=== PATIENT | female | born 1990 | race Caucasian/White ===

== ENCOUNTER 2016-05-07 15:09 | Emergency (ER) | payer OTHER ==
[~2016-05-07] VITALS: Ht 170.2 cm; Wt 131.5 kg
[~2016-05-07 15:09] MED LIST: MOTRIN PO; PRENATAL VITAMIN PO; TYLENOL PO
[2016-05-07] MEDS ORDERED: birth control PO (15:18)
[2016-05-07] MEDS ORDERED: LEXA1TAB PO (15:18)
[2016-05-07] MEDS ORDERED: GI COCKTAIL 50ML BTL(HYOSCYAMINE/MAALOX/LIDOCAINE VISCOUS)(1:3:1) PO ONE (17:00)
[2016-05-07] MEDS ORDERED: PRIL20TA2 PO (17:10)
[2016-05-07 17:28] VITALS: BP 141/91
== END 2016-05-07 17:39 | disposition home or self-care (01) ==
LOC: M ED 17:16
DX: K21.0 Gastro-esophageal reflux disease with esophagitis (principal); Z79.899 Other long term (current) drug therapy

== ENCOUNTER → 2017-06-10 | Outpatient (REF) | payer OTHER ==
[2017-06-10 13:16] LABS: HEMATOCRIT 37.1 % (36.0-47.0); HEMOGLOBIN 12.2 g/dl (12.0-15.5); MEAN CORPUSCULAR HEMOGLOBIN 26.8 pg (27.0-33.0); MEAN CORPUSCULAR HGB CONC 32.9 g/dl (32.0-36.5); MEAN CORPUSCULAR VOLUME 81.5 fl (80.0-96.0); PLATELET COUNT, AUTOMATED 130 10^3/uL (150-450); RED BLOOD COUNT 4.55 10^6/uL (4.00-5.40); RED CELL DISTRIBUTION WIDTH 13.7 % (11.5-14.5); WHITE BLOOD COUNT 8.2 10^3/uL (4.0-10.0)
[2017-06-10 14:06] LABS: HCG, SERUM QUANTITATIVE 5685 MIU/ML
[2017-06-11 10:55] LABS: RUBELLA IgG QUALITATIVE IMMUNE (IMMUNE)
[2017-06-11 11:11] LABS: HBsAg Prenatal NEGATIVE (NEGATIVE)
[2017-06-11 11:25] LABS: HIV 1&2 SCREEN CENTAUR NEGATIVE (NEGATIVE)
[2017-06-11 11:25] LABS: HEPATITIS C VIRUS ABY INDEX 0.1 INDEX (<0.8)
== END ==
LOC: M LAB REF 12:49
DX: O36.80X0 Pregnancy with inconclusive fetal viability, not applicable or unspecified (principal)

== ENCOUNTER → 2017-07-13 | Outpatient (REF) | payer OTHER ==
[2017-07-13 15:58] LABS: CHLAMYDIA DNA AMPLIFICATION NEGATIVE (NEGATIVE)
[2017-07-14 11:34] LABS: GC DNA AMPLIFICATION NEGATIVE (NEGATIVE)
== END ==
LOC: M LAB REF 13:33
DX: Z34.81 Encounter for supervision of other normal pregnancy, first trimester (principal)

== ENCOUNTER → 2017-11-19 | Outpatient (CLI) | payer OTHER ==
[2017-11-19 11:32] LABS: HEMATOCRIT 32.9 % (36.0-47.0); MEAN CORPUSCULAR HEMOGLOBIN 27.6 pg (27.0-33.0); MEAN CORPUSCULAR HGB CONC 33.4 g/dl (32.0-36.5); MEAN CORPUSCULAR VOLUME 82.5 fl (80.0-96.0); PLATELET COUNT, AUTOMATED 317 10^3/uL (150-450); RED BLOOD COUNT 3.99 10^6/uL (4.00-5.40); RED CELL DISTRIBUTION WIDTH 13.3 % (11.5-14.5); WHITE BLOOD COUNT 10.9 10^3/uL (4.0-10.0)
[2017-11-19 12:19] LABS: GLUCOSE CHALLENGE TEST 1 HOUR 140 MG/DL (LESS THAN 140)
== END ==
LOC: M LAB 10:08
DX: Z34.82 Encounter for supervision of other normal pregnancy, second trimester (principal); Z3A.00 Weeks of gestation of pregnancy not specified
CPT/HCPCS: 82950

== ENCOUNTER → 2017-11-26 | Outpatient (CLI) | payer OTHER ==
[2017-11-26 09:09] LABS: GLUCOSE, FASTING 78 MG/DL (LESS THAN 95)
[2017-11-26 10:23] LABS: 1 HR GLUCOSE 133 MG/DL (LESS THAN 180)
[2017-11-26 11:26] LABS: 2 HR GLUCOSE 115 MG/DL (LESS THAN 155)
[2017-11-26 11:53] LABS: 3 HR GLUCOSE 86 MG/DL (LESS THAN 140)
== END ==
LOC: M LAB 07:49
DX: O99.810 Abnormal glucose complicating pregnancy (principal); Z36.89 Encounter for other specified antenatal screening
CPT/HCPCS: 82951

== ENCOUNTER → 2018-01-06 | Outpatient (REF) | payer OTHER | LOC: M LAB REF 16:40 | DX: O13.3 Gestational [pregnancy-induced] hypertension without significant proteinuria, third trimester (principal) ==

== ENCOUNTER 2018-02-03 08:23 | Inpatient (IN) | payer OTHER ==
[2018-02-03] MEDS: LR 300 ML IV (09:47)
[2018-02-03 10:17] LABS: HEMATOCRIT 32.5 % (36.0-47.0); HEMOGLOBIN 10.1 g/dl (12.0-15.5); MEAN CORPUSCULAR HGB CONC 31.1 g/dl (32.0-36.5); MEAN CORPUSCULAR VOLUME 77.4 fl (80.0-96.0); PLATELET COUNT, AUTOMATED 335 10^3/uL (150-450); RED CELL DISTRIBUTION WIDTH 14.5 % (11.5-14.5); WHITE BLOOD COUNT 10.3 10^3/uL (4.0-10.0)
[2018-02-03] MEDS: LR 1,000 ML IV ×2 (10:21→15:35)
[2018-02-03] MEDS: LABETALOL 200 MG TAB PO ×2 (10:22→20:56)
[2018-02-03 10:32] LABS: ALT/SGPT 11 U/L (12-78); AST/SGOT 9 U/L (7-37); BILIRUBIN,TOTAL 0.3 MG/DL (0.2-1.0); CREATININE FOR GFR 0.62 MG/DL (0.55-1.30); GLOMERULAR FILTRATION RATE > 60.0 (>60); LDH LACTATE DEHYDROGENASE 176 U/L (84-246); URIC ACID 4.8 MG/DL (2.6-6.0)
[2018-02-03] MEDS: miSOPROStol 50 MCG 1/2 TAB (S0191) PO ×3 (15:35→23:30)
[2018-02-04 06:14] LABS: HEMATOCRIT 32.8 % (36.0-47.0); HEMOGLOBIN 10.2 g/dl (12.0-15.5); MEAN CORPUSCULAR HEMOGLOBIN 24.3 pg (27.0-33.0); MEAN CORPUSCULAR HGB CONC 31.1 g/dl (32.0-36.5); MEAN CORPUSCULAR VOLUME 78.1 fl (80.0-96.0); PLATELET COUNT, AUTOMATED 338 10^3/uL (150-450); RED CELL DISTRIBUTION WIDTH 14.6 % (11.5-14.5); WHITE BLOOD COUNT 11.9 10^3/uL (4.0-10.0)
[2018-02-04 06:35] LABS: ALT/SGPT 10 U/L (12-78); AST/SGOT 12 U/L (7-37); BILIRUBIN,TOTAL 0.3 MG/DL (0.2-1.0); CREATININE FOR GFR 0.64 MG/DL (0.55-1.30); GLOMERULAR FILTRATION RATE > 60.0 (>60); LDH LACTATE DEHYDROGENASE 246 U/L (84-246); URIC ACID 4.4 MG/DL (2.6-6.0)
[2018-02-04] MEDS: OXYTOCIN DRIP 30 UNITS in APPROPRIATE DILUENT 1 EA IV ×2 (08:04→16:30)
[2018-02-04] MEDS: LR 1,000 ML IV (08:07)
[2018-02-04] MEDS: LABETALOL 200 MG TAB PO ×2 (09:04→20:49)
[2018-02-04] MEDS ORDERED: FENTANYL 2MCG/ML ROPIVACAINE 0.2% IN 0.9% NACL 200ML IVBAG As Ordered (11:12)
[2018-02-04] MEDS ORDERED: ONDANSETRON 4MG/2ML VIAL (J2405) IV (12:45)
[2018-02-04] MEDS ORDERED: EPIDURAL COMMENT XX (12:45)
[2018-02-04] MEDS ORDERED: ePHEDrine SULFATE 25 MG/5 ML(5MG/ML) SYRINGE IV (12:45)
[2018-02-04] MEDS ORDERED: LACTATED RINGER'S 1000 ML IV (12:45)
[2018-02-04] MEDS: FENTANYL/ROPIVACAINE/NACL BAG 200 ML EPIDURAL (12:45)
[2018-02-04] MEDS ORDERED: NALOXONE INJ 0.4 MG/1 ML VIAL (J2310) IV (12:45)
[2018-02-04] MEDS ORDERED: REFRIGERATOR IV KEYS XX (12:45)
[2018-02-04] MEDS ORDERED: EPIDURAL/PCA KEYS XX (12:45)
[2018-02-04] MEDS ORDERED: diphenhydrAMINE INJ 50MG/ML VIAL (J1200) IV (12:45)
[2018-02-04] MEDS ORDERED: DIBUCAINE 1% OINTMENT 30GM TOP (16:30)
[2018-02-04] MEDS ORDERED: METHYLERGONOVINE MALEATE 0.2 MG TAB PO (16:30)
[2018-02-04] MEDS ORDERED: ANUSOL HC CREAM 30GM TOP (16:30)
[2018-02-04] MEDS ORDERED: DOCUSATE SODIUM 100 MG CAP PO (16:30)
[2018-02-04] MEDS ORDERED: MEASLES,MUMPS,RUBELLA VACCINE INJ (MMR-II) (90707) SC (16:30)
[2018-02-04] MEDS ORDERED: RHOGAM 300 MCG (1500 IU) INJ (J2790) IM (16:30)
[2018-02-04] MEDS: SERTRALINE 100 MG TAB PO (20:47)
[2018-02-05] MEDS: IBUPROFEN 800 MG TAB PO ×2 (06:12→16:13)
[2018-02-05] MEDS: PRENATAL VITAMINS CHEWABLE TABLET PO (09:41)
[2018-02-05] MEDS: LABETALOL 200 MG TAB PO ×2 (09:41→20:40)
[2018-02-05] MEDS: SERTRALINE 100 MG TAB PO (20:40)
[2018-02-05] MEDS: ACETAMINOPHEN 500 MG TAB PO (22:22)
[2018-02-06] MEDS: LABETALOL 200 MG TAB PO (09:04)
[2018-02-06] MEDS: PRENATAL VITAMINS CHEWABLE TABLET PO (09:04)
[2018-02-06] MEDS: IBUPROFEN 800 MG TAB PO (09:05)
== END 2018-02-06 10:45 | disposition home or self-care (01) | DRG 560 ==
LOC: M LDI 08:23 → M OBS 02-04 18:52
PROC: 3E033VJ Introduction of Other Hormone into Peripheral Vein, Percutaneous Approach (ICD-10-PCS; 2018-02-03)
PROC: 10E0XZZ Delivery of Products of Conception, External Approach (ICD-10-PCS; principal; 2018-02-04)
DX: O10.92 Unspecified pre-existing hypertension complicating childbirth (principal); Z37.0 Single live birth; Z3A.39 39 weeks gestation of pregnancy; D69.6 Thrombocytopenia, unspecified; O99.12 Other diseases of the blood and blood-forming organs and certain disorders involving the immune mechanism complicating childbirth; E66.9 Obesity, unspecified; O99.214 Obesity complicating childbirth

== ENCOUNTER 2018-07-01 18:13 | Emergency (ER) | payer OTHER ==
[~2018-07-01] VITALS: Ht 170.2 cm; Wt 136.4 kg
[~2018-07-01 18:13] MED LIST changes: -DEBL1TAB PO; -NAPR-837 PO
[2018-07-01] MEDS ORDERED: DEBL1TAB PO (19:09)
[2018-07-01 20:03] LABS: HCG, SERUM QUALITATIVE NEGATIVE (NEGATIVE)
[2018-07-01 20:07] LABS: BLOOD UREA NITROGEN 11 MG/DL (7-18); CALCIUM LEVEL 8.9 MG/DL (8.5-10.1); CARBON DIOXIDE LEVEL 25 MEQ/L (21-32); CHLORIDE LEVEL 106 MEQ/L (98-107); CREATININE FOR GFR 0.82 MG/DL (0.55-1.30); GLOMERULAR FILTRATION RATE > 60.0 (>60); GLUCOSE, FASTING 89 MG/DL (70-100); SODIUM LEVEL 139 MEQ/L (136-145)
[2018-07-01] MEDS ORDERED: ISOVUE-370 76% 100ML VIAL (Q9967) As Ordered ONE (20:34)
[2018-07-01 20:54] LABS: CK-MB VALUE MASS < 1.0 NG/ML (<3.6); CPK CREATINE PHOSPHOKINASE 103 U/L (26-192); MB/CK RELATIVE INDEX 0.97 (< OR =4); TROPONIN I < 0.02 NG/ML (< 0.10)
--- NOTE | 2018-07-01 21:52 | REPVR ---
EXAM: CT Angiography Chest With Contrast EXAM DATE/TIME: 07/01/2018 8:35 PM CLINICAL HISTORY: 27 years old, female; Signs and symptoms; Shortness of breath; Additional info: Chest pain, ddimer TECHNIQUE: Imaging protocol: Axial computed tomographic angiography images of the chest with intravenous contrast using CT angiography protocol. Coronal and sagittal reformatted images were created and reviewed. 3D rendering: MIP reconstructed images were created and reviewed. Radiation optimization: All CT scans at this facility use at least one of these dose optimization techniques: automated exposure control; mA and/or kV adjustment per patient size (includes targeted exams where dose is matched to clinical indication); or iterative reconstruction. Contrast material: ISOVUE 370; Contrast volume: 75 ml; Contrast route: IV; COMPARISON: DX RIBS UNILATERAL WITH PA CHEST 07/01/2018 5:16 PM FINDINGS: Pulmonary arteries: Contrast opacification satisfactory. No intraluminal filling defect. Aorta: Unremarkable. No aneurysm or dissection. Lungs: Mild linear stranding and groundglass, likely due to atelectasis and/or scarring. No focal consolidation. Pleural space: Small left pleural effusion. No pneumothorax. Heart: Unremarkable. No cardiomegaly. No pericardial effusion. Lymph nodes: No pathologically enlarged lymph nodes. Bones/joints: No acute osseous abnormality. Soft tissues: Unremarkable. IMPRESSION: 1. No CT evidence of acute appendicitis. 2. Small left pleural effusion. 3. Additional findings, as above. Electronically signed by: Ryan Gifford On 07/01/2018 21:52:22 PM
[2018-07-01] MEDS ORDERED: NAPR-837 PO (22:06)
[2018-07-01] MEDS ORDERED: KETOROLAC 30 MG/ML VIAL (J1885) IV ONE (22:15)
[2018-07-01 22:16] VITALS: BP 135/80
--- NOTE | 2018-07-02 06:40 | ECGEPIP ---
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
--- NOTE | 2018-07-02 06:50 | ED PDOC ---
Post-Departure Follow-Up dr painter faxed formal report of cta chest for fu Rickie De La Fuente MD Jul 02, 2018 06:50
== END 2018-07-01 22:39 | disposition home or self-care (01) ==
LOC: M ED 18:13
DX: R07.89 Other chest pain (principal); Z79.899 Other long term (current) drug therapy
CPT/HCPCS: 36415; 71275; 80048; 82550; 82553; 84703; 85379; 93005; 96374; 99284; J1885; Q9967

== ENCOUNTER → 2018-07-01 | Outpatient (CLI) | payer OTHER ==
[~2018-07-01] MED LIST changes: +DEBL1TAB PO; +IBUP80TA PO; +LABE20TAB PO; +LEXA1TAB PO; +MAPA500T2 PO; +NAPR-837 PO; +PRIL20TA2 PO; +ZOLO100T PO; +birth control PO
--- NOTE | 2018-07-01 17:48 | REP ---
Unilateral left ribs PA chest five views History: Left chest pain The lungs are clear. The heart is normal in size. The pulmonary vasculature is normal in appearance. The bony structure is intact. Impression: No acute disease. Electronically Signed by Bret Rodriguez MD 07/01/2018 05:39 P
== END ==
LOC: M ADAMS 17:24
PROVIDERS: ATTEND Physician Assistant Medical
DX: R07.89 Other chest pain (principal)

== ENCOUNTER 2020-03-27 19:06 | Day surgery (SDC) | payer OTHER ==
[~2020-03-27] VITALS: Ht 170.2 cm; Wt 145.6 kg
[~2020-03-27 19:06] MED LIST changes: -GASTROGRAFIN SOLUTION 30ML (Q9963) As Ordered ONE; -ISOVUE-370 76% 100ML VIAL As Ordered ONE; -LARI1TAB5 PO
--- OUTSIDE RECORDS SUMMARY | 2020-03-27 19:12 | CCD ---
Author Author [facility] Organization [facility] Address Unknown Phone Unavailable Care Team Providers Care Vegetable Tier Name Role Phone Shaben, E Almita SALES ASSOCIATE KEY HOLDER Unavailable Unavailable Shaben, E Almita SALES ASSOCIATE KEY HOLDER Unavailable Unavailable Shaben, E Almita SALES ASSOCIATE KEY HOLDER Unavailable Unavailable Shaben, E Almita SALES ASSOCIATE KEY HOLDER Unavailable Unavailable Shaben, E Almita SALES ASSOCIATE KEY HOLDER Unavailable Unavailable Shaben, E Almita SALES ASSOCIATE KEY HOLDER Unavailable Unavailable Shaben, E Almita SALES ASSOCIATE KEY HOLDER Unavailable Unavailable Shaben, E Almita SALES ASSOCIATE KEY HOLDER Unavailable Unavailable Shaben, E Almita SALES ASSOCIATE KEY HOLDER Unavailable Unavailable Shaben, E Almita SALES ASSOCIATE KEY HOLDER Unavailable Unavailable Shaben, E Almita SALES ASSOCIATE KEY HOLDER Unavailable Unavailable Shaben, E Almita SALES ASSOCIATE KEY HOLDER Unavailable Unavailable Shaben, E Almita SALES ASSOCIATE KEY HOLDER Unavailable Unavailable Shaben, E Almita SALES ASSOCIATE KEY HOLDER Unavailable Unavailable Shaben, E Almita SALES ASSOCIATE KEY HOLDER Unavailable Unavailable Shaben, E Almita SALES ASSOCIATE KEY HOLDER Unavailable Unavailable Shaben, E Almita SALES ASSOCIATE KEY HOLDER Unavailable Unavailable Shaben, E Almita SALES ASSOCIATE KEY HOLDER Unavailable Unavailable Shaben, E Almita SALES ASSOCIATE KEY HOLDER Unavailable Unavailable Shaben, E Almita SALES ASSOCIATE KEY HOLDER Unavailable Unavailable Shaben, E Almita SALES ASSOCIATE KEY HOLDER Unavailable Unavailable Shaben, E Almita SALES ASSOCIATE KEY HOLDER Unavailable Unavailable Shaben, E Almita SALES ASSOCIATE KEY HOLDER Unavailable Unavailable Carguello J Lucas DO Unavailable Unavailable Carguello J Lucas DO Unavailable Unavailable Carguello J Lucas DO Unavailable Unavailable Carguello J Lucas DO Unavailable Unavailable Carguello J Lucas DO Unavailable Unavailable Carguello J Lucas DO Unavailable Unavailable Carguello J Lucas DO Unavailable Unavailable Carguello J Lucas DO Unavailable Unavailable Carguello J Lucas DO Unavailable Unavailable Carguello J Lucas DO Unavailable Unavailable Carguello J Lucas DO Unavailable Unavailable Carguello J Lucas DO Unavailable Unavailable Carguello J Lucas DO Unavailable Unavailable Carguello J Lucas DO Unavailable Unavailable Carguello J Lucas DO Unavailable Unavailable Carguello J Lucas DO Unavailable Unavailable Carguello, J Lucas DO Unavailable Unavailable Carguello J Lucas DO Unavailable Unavailable Carguello J Lucas DO Unavailable Unavailable Carguello J Lucas DO Unavailable Unavailable Carguello J Lucas DO Unavailable Unavailable Carguello J Lucas DO Unavailable Unavailable Carguello J Lucas DO Unavailable Unavailable Carguello J Lucas DO Unavailable Unavailable Carguello J Lucas DO Unavailable Unavailable Carguello J Lucas DO Unavailable Unavailable Carguello J Lucas DO Unavailable Unavailable Carguello J Lucas DO Unavailable Unavailable Carguello J Lucas DO Unavailable Unavailable Carguello J Lucas DO Unavailable Unavailable Carguello J Lucas DO Unavailable Unavailable Carguello J Lucas DO Unavailable Unavailable Carguello J Lucas DO Unavailable Unavailable Carguello J Lucas DO Unavailable Unavailable Carguello J Lucas DO Unavailable Unavailable Carguello J Lucas DO Unavailable Unavailable Carguello J Lucas DO Unavailable Unavailable Carguello J Lucas DO Unavailable Unavailable Carguello J Lucas DO Unavailable Unavailable Carguello J Lucas DO Unavailable Unavailable Carguello J Lucas DO Unavailable Unavailable Carguello J Lucas DO Unavailable Unavailable Carguello J Lucas DO Unavailable Unavailable Carguello J Lucas DO Unavailable Unavailable Carguello J Lucas DO Unavailable Unavailable Carguello J Lucas DO Unavailable Unavailable Carguello, J Lucas DO Unavailable Unavailable Carguello J Lucas DO Unavailable Unavailable Carguello, J Lucas DO Unavailable Unavailable Carguello J Lucas DO Unavailable Unavailable Carguello J Lucas DO Unavailable Unavailable Carguello J Lucas DO Unavailable Unavailable Carguello, J Lucas DO Unavailable Unavailable Carguello, J Lucas DO Unavailable Unavailable Carguello, J Lucas DO Unavailable Unavailable Carguello, J Lucas DO Unavailable Unavailable Carguello, J Lucas DO Unavailable Unavailable Carguello, J Lucas DO Unavailable Unavailable Carguello, J Lucas DO Unavailable Unavailable Carguello, J Lucas DO Unavailable Unavailable Carguello, J Lucas DO Unavailable Unavailable Carguello, J Lucas DO Unavailable Unavailable Carguello, J Lucas DO Unavailable Unavailable Carguello, J Lucas DO Unavailable Unavailable Carguello, J Lucas DO Unavailable Unavailable Carguello, J Lucas DO Unavailable Unavailable Carguello, J Lucas DO Unavailable Unavailable Carguello, J Lucas DO Unavailable Unavailable Carguello, J Lucas DO Unavailable Unavailable Carguello, J Lucas DO Unavailable Unavailable Carguello J Lucas DO Unavailable Unavailable Carguello J Lucas DO Unavailable Unavailable Carguello J Lucas DO Unavailable Unavailable Carguello, J Lucas DO Unavailable Unavailable Carguello, J Lucas DO Unavailable Unavailable Carguello, J Lucas DO Unavailable Unavailable Carguello, J Lucas DO Unavailable Unavailable Carguello J Lucas DO Unavailable Unavailable Carguello, J Lucas DO Unavailable Unavailable Carguello, J Lucas DO Unavailable Unavailable Carguello, J Lucas DO Unavailable Unavailable Carguello J Lucas DO Unavailable Unavailable Carguello J Lucas DO Unavailable Unavailable Carguello J Lucas DO Unavailable Unavailable Carguello J Lucas DO Unavailable Unavailable Carguello, J Lucas DO Unavailable Unavailable Carguello, J Lucas DO Unavailable Unavailable Carguello J Lucas DO Unavailable Unavailable Carguello J Lucas DO Unavailable Unavailable Carguello J Lucas DO Unavailable Unavailable Carguello J Lucas DO Unavailable Unavailable Carguello, J Lucas DO Unavailable Unavailable Carguello, J Lucas DO Unavailable Unavailable Carguello J Lucas DO Unavailable Unavailable Carguello J Lucas DO Unavailable Unavailable Carguello J Lucas DO Unavailable Unavailable Carguello, J Lucas DO Unavailable Unavailable Carguello J Lucas DO Unavailable Unavailable Carguello, J Lucas DO Unavailable Unavailable Carguello J Lucas DO Unavailable Unavailable Carguello J Lucas DO Unavailable Unavailable Carguello J Lucas DO Unavailable Unavailable Carguello, J Lucas DO Unavailable Unavailable Carguello, J Lucas DO Unavailable Unavailable Carguello, J Lucas DO Unavailable Unavailable Carguello, J Lucas DO Unavailable Unavailable Carguello, J Lucas DO Unavailable Unavailable Carguello, J Lucas DO Unavailable Unavailable Carguello, J Lucas DO Unavailable Unavailable Carguello, J Lucas DO Unavailable Unavailable Carguello, J Lucas DO Unavailable Unavailable Carguello, J Lucas DO Unavailable Unavailable Carguello, J Lucas DO Unavailable Unavailable Carguello, J Lucas DO Unavailable Unavailable Carguello, J Lucas DO Unavailable Unavailable Carguello, J Lucas DO Unavailable Unavailable Carguello, J Lucas DO Unavailable Unavailable Carguello, J Lucas DO Unavailable Unavailable Carguello, J Lucas DO Unavailable Unavailable Carguello, J Lucas DO Unavailable Unavailable Carguello J Lucas DO Unavailable Unavailable Carguello J Lucas DO Unavailable Unavailable Carguello J Lucas DO Unavailable Unavailable Carguello, J Lucas DO Unavailable Unavailable Carguello, J Lucas DO Unavailable Unavailable Carguello, J Lucas DO Unavailable Unavailable Carguello, J Lucas DO Unavailable Unavailable Carguello J Lucas DO Unavailable Unavailable Carguello, J Lucas DO Unavailable Unavailable Carguello, J Lucas DO Unavailable Unavailable Carguello, J Lucas DO Unavailable Unavailable Carguello J Lucas DO Unavailable Unavailable Carguello J Lucas DO Unavailable Unavailable Carguello J Lucas DO Unavailable Unavailable Carguello J Lucas DO Unavailable Unavailable Carguello, J Lucas DO Unavailable Unavailable Carguello, J Lucas DO Unavailable Unavailable Carguello J Lucas DO Unavailable Unavailable Carguello J Lucas DO Unavailable Unavailable Carguello J Lucas DO Unavailable Unavailable Carguello J Lucas DO Unavailable Unavailable Carguello, J Lucas DO Unavailable Unavailable Carguello, J Lucas DO Unavailable Unavailable Carguello J Lucas DO Unavailable Unavailable Carguello J Ulcas DO Unavailable Unavailable Carguello J Lucas DO Unavailable Unavailable Carguello, J Lucas DO Unavailable Unavailable Carguello, J Lucas DO Unavailable Unavailable Carguello, J Lucas DO Unavailable Unavailable Carguello, J Lucas DO Unavailable Unavailable Carguello, J Lucas DO Unavailable Unavailable Carguello, J Lucas DO Unavailable Unavailable Carguello, J Lucas DO Unavailable Unavailable Carguello, J Lucas DO Unavailable Unavailable Carguello, J Lcuas DO Unavailable Unavailable Carguello, J Lucas DO Unavailable Unavailable Carguello, J Lucas DO Unavailable Unavailable Carguello, J Lucas DO Unavailable Unavailable Carguello, J Lucas DO Unavailable Unavailable Carguello, J Lucas DO Unavailable Unavailable Carguello, J Lucas DO Unavailable Unavailable Carguello, J Lucas DO Unavailable Unavailable Carguello, J Lucas DO Unavailable Unavailable Carguello, J Lucas DO Unavailable Unavailable Carguello, J Lucas DO Unavailable Unavailable Carguello, J Lucas DO Unavailable Unavailable Re-disclosure Warning The records that you are about to access may contain information from federally-assisted alcohol or drug abuse programs. If such information is present, then the following federally mandated warning applies: This information has been disclosed to you from records protected by federal confidentiality rules (42 CFR part 2). The federal rules prohibit you from making any further disclosure of this information unless further disclosure is expressly permitted by the written consent of the person to whom it pertains or as otherwise permitted by 42 CFR part 2. A general authorization for the release of medical or other information is NOT sufficient for this purpose. The Federal rules restrict any use of the information to criminally investigate or prosecute any alcohol or drug abuse patient.The records that you are about to access may contain highly sensitive health information, the redisclosure of which is protected by Article 27-F of the [facility] Public Health law. If you continue you may have access to information: Regarding HIV / AIDS; Provided by facilities licensed or operated by the [facility] Office of Mental Health; or Provided by the [facility] Office for People With Developmental Disabilities. If such information is present, then the following [facility] mandated warning applies: This information has been disclosed to you from confidential records which are protected by state law. State law prohibits you from making any further disclosure of this information without the specific written consent of the person to whom it pertains, or as otherwise permitted by law. Any unauthorized further disclosure in violation of state law may result in a fine or fci sentence or both. A general authorization for the release of medical or other information is NOT sufficient authorization for further disc losure. 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 -NO packet given Pt Bill of Rights, Priv Prac, Ad Dir completed packet given Pt Bill of Rights, Priv Prac, Ad Dir [facility] Note: Pt declined AD packet Allergies and Adverse Reactions Type Description Substance Reaction Status Data Source(s ) Allergy to substance No Known Allergies No known allergies (situation ) [facility] Allergy to substance No Known Allergies No known allergies (situation ) [facility] Allergy to substance No Known Allergies No known allergies (situation ) [facility] Family History Family Member Name Family Member Gender Family Member Status Date o f Status Description Data Source(s) Unknown Unknown Problem [facility] ([facility]) Encounters Encounter Providers Location Date Indications Data Source(s ) Outpatient<td ID="encounterTypeDescripti onID0">Primary Care Telehealth FaceTime</td><td>Almita Dixon NP</td><td>[facility]</td><td>12/26/2019</td><td><content ID="encounterDiagnosisID0-0">Anxiety Disorder Nos</content>, <content ID="encounterDiagnosisID0-1">Depression</content></td> [facility] 02:30:00 PM EDT - 12/26/2019 02:36:30 PM EDT DepressionAnxiety Disorder Nos [facility] ([facility]) Depression Anxiety Disorder Nos Outpatient<td ID="encounterTypeDescripti onID1">Primary Care Telehealth FaceTime</td><td>Almita Dixon NP</td><td>[facility]</td><td>11/10/2019</td><td><content ID="encounterDiagnosisID1-0"> Migraine Headache</content>, <content ID="encounterDiagnosisID1-1">Anxiety Disorder Nos</content>, <content ID="encounterDiagnosisID1-2">Obesity</content>, <content ID="encounterDiagnosisID1-3">Depression</content>, <content ID="encounterDiagnosisID1-4">Hyperlipidemia</content></td> Attender: Almita Dixon [facility] 11/10/2019 03:50:00 PM EDT - 11/10/2019 11:52:23 AM EDT Migraine HeadacheMigraine HeadacheHyperlipidemiaHyperlipidemiaDepressionDepressionAnxiety Disorder NosAnxiety Disorder NosObesityObesity [place] ([facility]) Migraine Headache Migraine Headache Hyperlipidemia Hyperlipidemia Depression Depression Anxiety Disorder Nos Anxiety Disorder Nos Obesity Obesity Unknown<td ID="encounterTypeDescriptionI D2">[Patient Encounter]</td><td>Almita Dixon NP</td><td></td><td>09/22/2019</td><td></td> Attender: Almita Dixon [facility] 09/22/2019 10:36:00 AM EDT - 09/22/2019 11:59:00 PM EDT [facility] ([facility]) Outpatient<td ID="encounterTypeDescripti onID3">[facility]</td><td>Almita Dixon NP</td><td>[facility]</td><td>04/18/2019</td><td><content ID="encounterDiagnosisID3-0">Routine History and Physical</content>, <content ID="encounterDiagnosisID3-1">Hyperlipidemia</content>, <content ID="encounterDiagnosisID3-2">Anxiety Disorder Nos</content>, <content ID="encounterDiagnosisID3-3">Depression</content></td> Attender: Almita Dixon [facility] 04/18/2019 09:18:00 AM EST - 04/18/2019 10:37:32 AM EST Routine History and PhysicalRoutine History and PhysicalRoutine History and PhysicalHyperlipidemiaHyperlipidemiaHyperlipidemiaDepressionDepressionDepression Anxiety Disorder NosAnxiety Disorder NosAnxiety Disorder Nos [facility] ([facility]) Routine History and Physical Routine History and Physical Routine History and Physical Hyperlipidemia Hyperlipidemia Hyperlipidemia Depression Depression Depression Anxiety Disorder Nos Anxiety Disorder Nos Anxiety Disorder Nos Unknown<td ID="encounterTypeDescriptionI D4">Correspondence</td><td>Lucas Arias DO</td><td></td><td>04/07/2019</td><td></td> Attender: Lucas Arias DO 04/07/2019 09:57:00 AM EST - 04/07/2019 11:59:00 PM EST [facility] ([facility]) Outpatient Attender: Lucas Arias DO 04/06/2019 09:10 :00 AM EST lab [facility] lab Medications Medication Brand Name Start Date Product Form Dose Route Admi nistrative Instructions Pharmacy Instructions Status Indications Reaction Description Data Source(s) 1-20 mg-mcg 01/22/2020 12:00:00 AM EST tablet 63 TAKE ONE TABLET BY MOUTH EVERY DAY TAKE ONE TABLET BY MOUTH EVERY DAY SOLD: 01/22/2020 [facility] 100 mg 11/11/2019 12:00:00 AM EDT tablet 60 TAKE TWO TABLETS BY MOUTH EVERY DAY TAKE TWO TABLETS BY MOUTH EVERY DAY SOLD: 01/22/2020 [facility] 100 mg 11/11/2019 12:00:00 AM EDT tablet 60 TAKE TWO TABLETS BY MOUTH EVERY DAY TAKE TWO TABLETS BY MOUTH EVERY DAY SOLD: 03/24/2020 [facility] 100 mg 11/11/2019 12:00:00 AM EDT tablet 60 TAKE TWO TABLETS BY MOUTH EVERY DAY TAKE TWO TABLETS BY MOUTH EVERY DAY SOLD: 12/20/2019 [facility] 100 mg 11/11/2019 12:00:00 AM EDT tablet 60 TAKE TWO TABLETS BY MOUTH EVERY DAY TAKE TWO TABLETS BY MOUTH EVERY DAY SOLD: 11/19/2019 [facility] 100 mg 11/11/2019 12:00:00 AM EDT tablet 60 TAKE TWO TABLETS BY MOUTH EVERY DAY TAKE TWO TABLETS BY MOUTH EVERY DAY SOLD: 02/23/2020 [facility] Sertraline 100 MG Oral Tablet Sertraline HCl 100 MG Or al Tablet Sertraline HCl 100 MG Oral Tablet 11/10/2019 12:00:00 AM EDT active sertraline 100 MG Oral Tablet [facility] Fe 03/27 1-20 MG-MCG Oral Tablet [facility] 1/ 1-20 MG- MCG Oral Tablet 11/10/2019 12:00:00 AM EDT active {21 (ethinyl estradiol 0.02 MG / norethindrone acetate 1 MG Oral Tablet) / 7 (ferrous fumarate 75 MG Oral Tablet) } Pack [Hunter Fe 03/27] [facility] ([facility]) 1-20 mg-mcg 11/01/2019 12:00:00 AM EDT tablet 63 TAKE ONE TABLET BY MOUTH EVERY DAY TAKE ONE TABLET BY MOUTH EVERY DAY SOLD: 11/06/2019 [facility] 100 mg 04/20/2019 12:00:00 AM EST tablet 45 TAKE 1 AND 1/2 TABLETS BY MOUTH ONCE DAILY TAKE 1 AND 1/2 TABLETS BY MOUTH ONCE DAILY SOLD: 07/21/2019 [facility] 100 mg 04/20/2019 12:00:00 AM EST tablet 45 TAKE 1 AND 1/2 TABLETS BY MOUTH ONCE DAILY TAKE 1 AND 1/2 TABLETS BY MOUTH ONCE DAILY SOLD: 09/22/2019 [facility] 100 mg 04/20/2019 12:00:00 AM EST tablet 45 TAKE 1 AND 1/2 TABLETS BY MOUTH ONCE DAILY TAKE 1 AND 1/2 TABLETS BY MOUTH ONCE DAILY SOLD: 08/22/2019 [facility] 100 mg 04/20/2019 12:00:00 AM EST tablet 45 TAKE 1 AND 1/2 TABLETS BY MOUTH ONCE DAILY TAKE 1 AND 1/2 TABLETS BY MOUTH ONCE DAILY SOLD: 10/23/2019 [facility] 100 mg 04/20/2019 12:00:00 AM EST tablet 45 TAKE 1 AND 1/2 TABLETS BY MOUTH ONCE DAILY TAKE 1 AND 1/2 TABLETS BY MOUTH ONCE DAILY SOLD: 06/22/2019 [facility] 100 mg 04/20/2019 12:00:00 AM EST tablet 45 TAKE 1 AND 1/2 TABLETS BY MOUTH ONCE DAILY TAKE 1 AND 1/2 TABLETS BY MOUTH ONCE DAILY SOLD: 05/22/2019 [facility] 100 mg 04/20/2019 12:00:00 AM EST tablet 45 TAKE 1 AND 1/2 TABLETS BY MOUTH ONCE DAILY TAKE 1 AND 1/2 TABLETS BY MOUTH ONCE DAILY SOLD: 04/26/2019 [facility] Sertraline 100 MG Oral Tablet Sertraline HCl 100 MG Or al Tablet Sertraline HCl 100 MG Oral Tablet 04/18/2019 12:00:00 AM EST aborted sertraline 100 MG Oral Tablet [facility] ([facility]) 1-20 mg-mcg 02/08/2019 12:00:00 AM EST tablet 63 TAKE ONE TABLET BY MOUTH EVERY DAY TAKE ONE TABLET BY MOUTH EVERY DAY SOLD: 05/19/2019 [facility] 1-20 mg-mcg 02/08/2019 12:00:00 AM EST tablet 63 TAKE ONE TABLET BY MOUTH EVERY DAY TAKE ONE TABLET BY MOUTH EVERY DAY SOLD: 02/23/2019 [facility] 1-20 mg-mcg 02/08/2019 12:00:00 AM EST tablet 63 TAKE ONE TABLET BY MOUTH EVERY DAY TAKE ONE TABLET BY MOUTH EVERY DAY SOLD: 08/13/2019 [facility] Adult Blood Pressure Cuff Lg Kit Adult Blood Pressure Cuff L g Kit 12/20/2018 12:00:00 AM EDT 1 aborted Adult B lood Pressure Cuff Lg [facility] ([facility]) Sertraline 100 MG Oral Tablet Sertraline HCl 100MG Ora l Tablet Sertraline HCl 100MG Oral Tablet 10/17/2018 12:00:00 AM EDT aborted sertraline 100 MG Oral Tablet [facility] ([facility]) 100 mg 10/17/2018 12:00:00 AM EDT tablet 45 TAKE 1 1/2 TABLETS BY MOUTH ONCE DAILY TAKE 1 1/2 TABLETS BY MOUTH ONCE DAILY SOLD: 03/26/2019 [facility] 100 mg 10/17/2018 12:00:00 AM EDT tablet 45 TAKE 1 1/2 TABLETS BY MOUTH ONCE DAILY TAKE 1 1/2 TABLETS BY MOUTH ONCE DAILY SOLD: 02/23/2019 [facility] Deblitane 0.35MG Oral Tablet Deblitane 0.35MG Oral Tablet 12:00:00 AM EST 1 aborted {28 (nor ethindrone 0.35 MG Oral Tablet) } Pack [Deblitane 28 Day] [facility] ([facility]) Insurance Providers Payer name Policy type / Coverage type Policy ID Covered constitution party ID Covered constitution party's relationship to diaz Policy Diaz Plan Information [facility] COMMUNITY PLAN [facility] [id number] [facility] Other 0 Self 0 UnitedHealthcare Other 0 Self 0 UnitedHealthcare Other 0 Self 0 SELF PAY [facility] COMMUNITY PLAN [id number] SP [id number] UnitedHealthcare Other 0 Self 0 UnitedHealthcare Other 0 Self 0 United [facility] Health Maintenance Organization (HMO) [id number] Self [id number] [employer] Other 0 Self 0 UN COMMUNITY PLAN [facility] [id number] SP [id number] United[employer]care Other 0 Self 0 [employer] Other 0 Self 0 UnitedHealthcare Other 0 Self 0 [facility] COMMUNITY PLAN [id number] SP [id number] United[employer]care Other 0 Self 0 UnitedHealthcare Other 0 Self 0 [facility] Health Maintenance Organization (HMO) [id number] Self [id number] [employer] Other 0 Self 0 [employer]Healthcare Other 0 Self 0 [employer] Other 0 Self 0 UN COMMUNITY PLAN [facility] [id number] SP [id number] SELF PAY UNAVAILABLE SP UNAVAILA BLE [facility] Health Maintenance Organization (HMO) Self [facility] P [id number] S [id number] MEDICAID S [id number] [facility] I [id number] Self [id number] MEDICAID [id number] SP [id number] Surgeries/Procedures Procedure Description Date Indications Data Source(s) Past medical history -Please see Problem List for Act kenneth Chronic Problems Past medical history -Please see Problem List for Active Chronic Problems 12/26/2019 12:00:00 AM EDT [facility] ([facility]) Para 1 Para 1 12/26/2019 12:00:00 AM EDT [facility] ([facility]) 1 1 12/26/2019 12:00:00 AM EDT [facility] ([facility]) History of tonsillectomy History of tonsillectomy 12/26/2019 12:00: 00 AM EDT [facility] ([facility]) Past medical history -Please see Problem List for Act kenneth Chronic Problems Past medical history -Please see Problem List for Active Chronic Problems 11/10/2019 12:00:00 AM EDT [facility] ([facility]) Para 1 Para 1 11/10/2019 12:00:00 AM EDT [facility] ([facility]) 1 1 11/10/2019 12:00:00 AM EDT [facility] ([facility]) History of tonsillectomy History of tonsillectomy 11/10/2019 12:00: 00 AM EDT [facility] ([facility]) Past medical history -Please see Problem List for Act kenneth Chronic Problems Past medical history -Please see Problem List for Active Chronic Problems 04/18/2019 12:00:00 AM EST [facility] ([facility]) Para 1 Para 1 04/18/2019 12:00:00 AM EST [facility]) 1 1 04/18/2019 12:00:00 AM EST [facility] ([facility]) History of tonsillectomy History of tonsillectomy 04/18/2019 12:00: 00 AM EST [facility] ([facility]) Results ID Date Data Source [id number] 04/06/2019 09:20:00 AM EST [facility] ([facility]) Name Value Range Interpretation Code Description Data Suze rce(s) Supporting Document(s) Reported Physicians See Note Reported Physicians [facility] [facility]) Note: Reported Physicians:Ordering: Lucas Nievesending: Lucas Arias ID Date Data Source [id number] 04/06/2019 09:20:00 AM EST [facility] ([facility]) Name Value Range Interpretation Code Description Data Suze rce(s) Supporting Document(s) Thyrotropin [Units/volume] in Serum or Plasma by Detec tion limit <= 0.05 mIU/L 2.417 uIU/ML Normal TSH [place] ([facility]) Note: Patients should not be tested for 72 hours post fluorescein dye angiography. A false depression of result may occur.Responsible Observer: TSH TSH 300.5500 (A) ID Date Data Source [id number] 04/06/2019 09:20:00 AM EST [place] ([facility]) Name Value Range Interpretation Code Description Data Suze rce(s) Supporting Document(s) Cholesterol crystals [Presence] in Stone by Infrared spectroscop y 200 MG/DL Normal CHOLESTEROL [place] ([facility]) Note: Responsible Observer: CHOL CHOLEST MACRINA 300.4350 (A) Deprecated Cholesterol.in LDL/Cholestero l.in HDL [Mass ratio] in Serum or Plasma 3.6 Normal CHOL/HDL RATIO [place] ([facility] ) Note: Responsible Observer: CHOL/HDL RAT IO CHOL/HDL RATIO 300.4700 (A) Triglyceride [Mass/volume] in Serum or Plasma 150 MG/DL N ormal TRIGLYCERIDES [place] ([facility]ly [facility]) Note: Responsible Observer: TRIG TRIGLYC ERIDES 300.4300 (A) Cholesterol in LDL [Mass/volume] in Serum or Plasma by Direct as say 114 MG/DL Normal LDL CHOLESTEROL [place] ([facility]) Note: Responsible Observer: LDL LDL CHOL ESTEROL 300.4400 (A) Cholesterol in HDL [Mass/volume] in Serum or Plasma ultracen trifugate 56 MG/DL Normal HDL CHOLESTEROL [place] ([facility]) Note: Responsible Observer: HDL HDL CHOL ESTEROL 300.4600 (A) ID Date Data Source [id number] 04/06/2019 09:20:00 AM EST [place] ([email or web address]) Name Value Range Interpretation Code Description Data Suze rce(s) Supporting Document(s) Albumin/Globulin [Mass Ratio] in Amniotic fluid 1.9 G/DL Normal ALB/GLOB RATIO [place] ([facility]) Note: Responsible Observer: A/G RATIO AL B/GLOB RATIO 300.4100 (A) Albumin [Mass/volume] in Synovial fluid 4.4 G/DL Normal ALBUMIN [place] ([facility]) Note: Responsible Observer: ALB ALBUMIN 300.3900 (A) Alanine aminotransferase [Enzymatic activity/volume] in Seru m or Plasma 14 U/L Normal ALT [place] ([facility]) Note: Responsible Observer: ALT/SGPT ALT 300.3100 (A) Alkaline phosphatase isoenzyme [Units/volume] in Serum or Plasma 96 U/L Normal ALKALINE PHOSPHATASE [place] ([facility]) Note: Responsible Observer: ALK PHOS ALK DUSTIN PHOSPHATASE 300.3110 (A) BLOOD UREA NITRO 13 MG/DL Normal BLOOD UREA NITRO [facility] ([facility]ly [facility]) Note: Responsible Observer: BUN BLOOD UR EA NITROGEN 300.0350 (A) Urea nitrogen/Creatinine [Mass Ratio] in Serum or Plasma 16 Normal BUN/CREAT RATIO [place] ([facility]) Note: Responsible Observer: BUN/CREAT RA BETTY BUN/CREAT RATIO 300.0450 (A) Aspartate aminotransferase [Enzymatic activity/volume] in Serum or Plasma 12 U/L Normal AST [place] ([facility]) Note: Responsible Observer: AST/SGOT AST 300.3050 (A) Bilirubin.total [Mass/volume] in Serum or Plasma 0.3 MG/DL Normal BILIRUBIN,TOTAL [place] ([facility]) Note: Responsible Observer: TOTAL BILI T OTAL BILIRUBIN 300.2700 (A) Chloride [Moles/volume] in Serum, Plasma or Blood 106 MEQ/L Normal CHLORIDE [place] ([facility]) Note: Responsible Observer: CL CHLORIDE 300.0200 (A) CA 9.4 MG/DL Normal CA [place] ([facility]) Note: Responsible Observer: CA CALCIUM 300.2200 (A) Carbon dioxide, total [Moles/volume] in Serum or Plasma 25 MEQ/L Normal CARBON DIOXIDE [place] ([facility]) Note: Responsible Observer: CO2 CARBON D IOXIDE 300.0250 (A) Anion gap in Blood 14 Normal ANION GAP [place] ([facility]) Note: Responsible Observer: ANION GAP AN ION GAP 300.0300 (A) Globulin [Mass/volume] in Serum by calculation 2.3 G/DL Normal GLOBULIN [place] ([facility]) Note: Responsible Observer: GLOB GLOBULI N 300.4050 (A) GFR 84.2 ML/MIN GFR [place] ([facility]) Note: Stage G2 - Mildly decreased kidne y function The GFR is an estimate of the Glomerular Filtration Rate. It is an aid to assess a patient's renal function. It is not a conclusive diagnosis of kidney disease. GFR normal is >=90 The MDRD GFR calculation is considered valid between the ages of 18 and 75 years only.Responsible Observer: GFR GFR 300.0410 (A) Creatine/Creatinine [Mass Ratio] in Urine 0.8 MG/DL Meghan l CREATININE [place] ([facility]) Note: Responsible Observer: CREAT CREATI NINE 300.0400 (A) Potassium [Mass/volume] in Blood 4.5 MEQ/L Normal POT ASSIUM [place] ([facility]) Note: Responsible Observer: K POTASSIUM 300.0150 (A) Glucose [Presence] in Urine 87 MG/DL Normal GLUCOSE GR [facility] ([facility]) Note: Responsible Observer: GLU GLUCOSE 300.0500 (A) Sodium [Moles/volume] in Serum, Plasma or Blood 140 MEQ/L Normal SODIUM [place] ([facility]) Note: Responsible Observer: NA SODIUM 3 00.0100 (A) Protein [Mass/volume] in Synovial fluid 6.7 G/DL Normal TOTAL PROTEIN [place] ([facility]) Note: Responsible Observer: TP TOTAL PRO TEIN 300.3750 (A) ID Date Data Source [id number] 04/06/2019 09:20:00 AM EST [place] ([facility]) Name Value Range Interpretation Code Description Data Suze rce(s) Supporting Document(s) Deprecated Creatinine 156.5 MG/DL CREAT RANDOM URI NE [place] ([facility]) Note: No Normal Ranges Available for th is Procedure.Responsible Observer: UR CREAT UR CREATININE 200.3655 (A) Microalbumin [Mass/volume] in Urine < 3.0 MG/L MICROALBUMIN,URINE [place] ([facility]) Note: Responsible Observer: UR MICROALB RND UR MICROALBUMIN RANDOM 200.4000 (A) Microalbumin/Creatinine [Mass Ratio] in Urine 1.9 UG/MG_CR Normal MICROALBUM/CREATININE RATIO,UR [place] ([facility]) Note: Responsible Observer: UR MICROALB/ CRE UR MICROALBUMIN/CREAT RATIO 200.4100 (A) ID Date Data Source [id number] 04/06/2019 09:20:00 AM EST [place] ([facility]) Name Value Range Interpretation Code Description Data Suze rce(s) Supporting Document(s) BASO # (AUTO) 0.05 10\\^3/uL Normal BASO # (AUTO) [place] ([facility]) Note: Responsible Observer: BASO # (AUTO ) BASO # (AUTO) 100.1500 (A) BASO % (AUTO) 0.6 % Normal BASO % (AUTO) [place] ([facility]) Note: Responsible Observer: BASO % (AUTO ) BASO % (AUTO) 100.1250 (A) EOS % (AUTO) 2.0 % Normal EOS % (AUTO) [place] ([facility]) Note: Responsible Observer: EOS % (AUTO) EOS % (AUTO) 100.1200 (A) EOS # (AUTO) 0.17 10\\^3/uL Normal EOS # (AUTO) [place] ( [facility]) Note: Responsible Observer: EOS # (AUTO) EOS # (AUTO) 100.1450 (A) Hematocrit [Volume Fraction] of Blood by Automated count 39.5 % Normal HEMATOCRIT [place] ([facility]) Note: Responsible Observer: HCT HEMATOCR IT 100.0400 (A) GRAN # (AUTO) 5.10 10\\^3/uL Normal GRAN # (AUTO) [place] ([facility]) Note: Responsible Observer: GRAN # (AUTO ) GRAN #(AUTO) 100.1325 (A) GRAN % (AUTO) 60.4 % Normal GRAN % (AUTO) [place] ([facility]) Note: Responsible Observer: GRAN % (AUTO ) GRAN % (AUTO) 100.1000 (A) IG # (AUTO) 0.0 10\\^3/uL IG # (AUTO) [place] ([facility]) Note: Responsible Observer: IG # (AUTO) IG # (AUTO) 100.1260 (A) Hemoglobin [Mass/volume] in Blood 12.4 G/DL Normal HE MOGLOBIN [place] ([facility]) Note: Responsible Observer: HGB HEMOGLOB IN 100.0300 (A) IG % (AUTO) 0.2 % IG % (AUTO) [place] ([facility]) Note: Responsible Observer: IG % (AUTO) IG % (AUTO) 100.1255 (A) LYMPH % (AUTO) 30.5 % Normal LYMPH % (AUTO) [place] ( [facility]) Note: Responsible Observer: LYMPH % (AUT O) LYMPH % (AUTO) 100.1100 (A) LYMPH # (AUTO) 2.6 k/uL Normal LYMPH # (AUTO) [place] ( [facility]) Note: Responsible Observer: LYMPH # (AUT O) LYMPH # (AUTO) 100.1350 (A) Erythrocyte mean corpuscular hemoglobin [Entitic mass] by Automated count 23.2 PG Below low normal MCH [place] [facility]) Note: Responsible Observer: MCH MCH 100 .0600 (A) Erythrocyte mean corpuscular hemoglobin concentration [Mass/volume] by Automated count 31.4 G/DL Below low normal [facility]C [facility] [facility] Note: Responsible Observer: MCHC MCHC 1 00.0650 (A) MONO # (AUTO) 0.53 k/uL Normal MONO # (AUTO) [place] ([facility]) Note: Responsible Observer: MONO # (AUTO ) MONO # (AUTO) 100.1400 (A) MONO % (AUTO) 6.3 % Normal MONO % (AUTO) [place] ([facility]) Note: Responsible Observer: MONO % (AUTO ) MONO% (AUTO) 100.1150 (A) Erythrocyte mean corpuscular volume [Entitic volume] by Auto mated count 74.0 FL Below low normal MCV [place] ([facility]) Note: Responsible Observer: MCV MCV 100 .0550 (A) Platelets [#/volume] in Plasma by Automated count 397 10\\^3/uL Normal PLATELET COUNT [place] ([facility]) Note: Responsible Observer: PLT PLATELET COUNT 100.0850 (A) MPV 9.6 FL Normal MPV [place] ([facility]) Note: Responsible Observer: MPV MPV 100 .0950 (A) Erythrocytes [#/volume] in Blood by Automated count 5.34 10\\^6/u L Above high normal RED BLOOD COUNT [place] ([facility]) Note: Responsible Observer: RBC RED BLOO D COUNT 100.0250 (A) Erythrocyte distribution width [Ratio] by Automated count 16.1 % Above high normal RDW [place] ([facility]) Note: Responsible Observer: RDW RDW 100 .0700 (A) Leukocytes [#/volume] in Blood by Automated count 8.44 10\\^3/uL Normal WHITE BLOOD COUNT [place] ([facility]) Note: Responsible Observer: WBC WHITE BL OOD COUNT 100.0150 (A) ID Date Data Source [id number] 04/06/2019 01:42:00 PM [facility] Has Patient Fasted For The Past 12 Hour s? N Has Patient Fasted For The Past 12 Hours? Y Has Patient Fasted For The Past 12 Hour s? N Has Patient Fasted For The Past 12 Hours? Y Has Patient Fasted For The Past 12 Hour s? N Has Patient Fasted For The Past 12 Hours? Y Has Patient Fasted For The Past 12 Hour s? N Has Patient Fasted For The Past 12 Hours? Y Name Value Range Interpretation Code Description Data Suze rce(s) Supporting Document(s) WHITE BLOOD COUNT 8.44 10^3/uL 4.00-10.50 [facility] RED BLOOD COUNT 5.34 10^6/uL 3.90-5.20 [facility] 12.4 G/DL 11.5-15.6 [facility]EM[facility]IT 39.5 % 35.0-46.0 [facility] MCV 74.0 FL 80.0-100.0 [facility] MCH 23.2 PG 27.0-34.0 [facility] MCHC 31.4 G/DL 32-36 [facility] RDW 16.1 % 11.5-14.5 [facility] PLATELET COUNT 397 10^3/uL 130-400 [facility] MPV 9.6 FL 8.7-13.2 [place] [facility] GRAN % (AUTO) 60.4 % 42.0-75.0 [facility] LY[facility]H % (AUTO) 30.5 % 20.0-51.0 [place] [facility] MONO % (AUTO) 6.3 % 2.0-15.0 [place] [facility] EOS % (AUTO) 2.0 % 0.0-11.0 [place] [facility] BASO % (AUTO) 0.6 % 0.0-2.0 [facility] IG % (AUTO) 0.2 % 1.00-5.00 [facility] IG # (AUTO) 0.0 10^3/uL <0.5 [facility] GRAN # (AUTO) 5.10 10^3/uL 1.50-6.50 [facility] LYMPH # (AUTO) 2.6 k/uL 1.0-5.0 [place] [facility] MONO # (AUTO) 0.53 k/uL 0.20-1.50 [facility] EOS # (AUTO) 0.17 10^3/uL 0.00-1.10 [facility] [place] [facility] BASO # (AUTO) 0.05 10^3/uL 0.00-0.20 [facility] [place] [facility] ID Date Data Source [id number] 04/06/2019 02:41:00 PM [facility] Has Patient Fasted For The Past 12 Hour s? N Has Patient Fasted For The Past 12 Hours? Y Has Patient Fasted For The Past 12 Hour s? N Has Patient Fasted For The Past 12 Hours? Y Has Patient Fasted For The Past 12 Hour s? N Has Patient Fasted For The Past 12 Hours? Y Has Patient Fasted For The Past 12 Hour s? N Has Patient Fasted For The Past 12 Hours? Y Name Value Range Interpretation Code Description Data [facility] Supporting Document(s) CREAT RANDOM URINE 156.5 MG/DL [facility] No Normal Ranges Available for this Pro cedure. MICROALBUMIN,URINE < 3.0 MG/L [facility] MICROALBUM/CREATININE RATIO,UR 1.9 UG/MG CR 0.0-30.0 [facility] ID Date Data Source [id number] 04/06/2019 02:41:00 PM [facility] Has Patient Fasted For The Past 12 Hour s? N Has Patient Fasted For The Past 12 Hours? Y Has Patient Fasted For The Past 12 Hour s? N Has Patient Fasted For The Past 12 Hours? Y Has Patient Fasted For The Past 12 Hour s? N Has Patient Fasted For The Past 12 Hours? Y Has Patient Fasted For The Past 12 Hour s? N Has Patient Fasted For The Past 12 Hours? Y Name Value Range Interpretation Code Description Data [facility](s) Supporting Document(s) SODIUM 140 MEQ/L 135-145 [facility] POTASSIUM 4.5 MEQ/L 3.5-5.3 [facility] CHLORIDE 106 MEQ/L 94-110 [facility] CARBON DIOXIDE 25 MEQ/L 22-33 [facility] ANION GAP 14 5-16 [facility] BLOOD UREA NITRO 13 MG/DL 7-[address] [facility] CREATININE 0.8 MG/DL 0.6-1.4 [facility] GFR 84.2 ML/MIN [facility] Stage G2 - Mildly decreased kidney func tion The GFR is an estimate of the Glomerular Filtration Rate. It is an aid to assess a patient's renal function. It is not a conclusive diagnosis of kidney disease. GFR normal is >=90 The MDRD GFR calculation is considered valid between the ages of 18 and 75 years only. BUN/CREAT RATIO 16 8-[address] [facility] GLUCOSE 87 MG/DL 70-100 [facility] CA 9.4 MG/DL 8.7-10.5 [facility] BILIRUBIN,TOTAL 0.3 MG/DL 0.1-1.3 [facility] AST 12 U/L 5-[address] [facility] ALT 14 U/L 5-[address] [facility] ALKALINE PHOSPHATASE 96 U/L 40-140 [facility] alth TOTAL PROTEIN 6.7 G/DL 5.9-8.[address] [facility] ALBUMIN 4.4 G/DL 3.0-5.[address] [facility] GLOBULIN 2.3 G/DL 1.5-3.5 [facility] ALB/GLOB RATIO 1.9 G/DL 1.0-2.7 [facility] ID Date Data Source [id number] 04/06/2019 02:41:00 PM [facility] Has Patient Fasted For The Past 12 Hour s? N Has Patient Fasted For The Past 12 Hours? Y Has Patient Fasted For The Past 12 Hour s? N Has Patient Fasted For The Past 12 Hours? Y Has Patient Fasted For The Past 12 Hour s? N Has Patient Fasted For The Past 12 Hours? Y Has Patient Fasted For The Past 12 Hour s? N Has Patient Fasted For The Past 12 Hours? Y Name Value Range Interpretation Code Description Data Suze rce(s) Supporting Document(s) TRIGLYCERIDES 150 MG/DL 45-150 [facility] CHOLESTEROL 200 MG/DL 125-200 [facility] LDL CHOLESTEROL 114 MG/DL 50-[address] [facility] HDL CHOLESTEROL 56 MG/DL 32-96 [facility] CHOL/HDL RATIO 3.6 0-4.[address] [facility] ID Date Data Source [id number] 04/06/2019 02:41:00 PM [facility] Has Patient Fasted For The Past 12 Hour s? N Has Patient Fasted For The Past 12 Hours? Y Has Patient Fasted For The Past 12 Hour s? N Has Patient Fasted For The Past 12 Hours? Y Has Patient Fasted For The Past 12 Hour s? N Has Patient Fasted For The Past 12 Hours? Y Has Patient Fasted For The Past 12 Hour s? N Has Patient Fasted For The Past 12 Hours? Y Name Value Range Interpretation Code Description Data Su[facility](s) Supporting Document(s) TSH 2.417 uIU/ML 0.470-4.[address] [facility] Patients should not be tested for 72 ho urs post fluorescein dye angiography. A false depression of result may occur. Procedure Social History Code Duration Value Status Description Data Source(s ) Smoking 12/26/2019 02:41:51 PM EDT Never smoked tobacco (findi ng) completed Never smoked tobacco (finding) [place] ([facility]) Smoking 11/10/2019 12:00:00 AM EDT Never smoked tobacco (findi ng) completed Never smoked tobacco (finding) [place] ([facility]) Smoking 04/18/2019 12:00:00 AM EST Never smoked tobacco (findi ng) completed Never smoked tobacco (finding) [place] ([facility]) Assertion 04/18/2019 12:00:00 AM EST Finding relat ing to drug misuse behavior (finding) completed Finding relating to drug misuse behavior (finding) [place] ([facility]) Assertion 04/18/2019 12:00:00 AM EST Current drinker of al cohol (finding) completed Current drinker of alcohol (finding) [place] ([facility]) Vital Signs ID Date Data Source UNK Name Value Range Interpretation Code Description Data Source(s) PhenX - pain, abdominal - type and intensity protocol 0 0 [place] ([facility]) PhenX - pain, abdominal - type and intensity protocol 0 0 [place] ([facility]) pt unable to obtain vitals at home today Inhaled oxygen concentration 21 % 21 % [place] ([facility]) Inhaled oxygen flow rate 0 L/min 0 L/min [place] ([facility]) Oxygen saturation in Arterial blood by Pulse oximetry 97 % 97 % [place] ([facility]) PhenX - pain, abdominal - type and intensity protocol 0 0 [place] ([facility]) Body surface area Derived from formula 2.46 m2 2.46 m2 [place] ([facility]) Body mass index (BMI) [Ratio] 50.3 kg/m2 50.3 k g/m2 [place] ([facility]) Body weight 319 [lb_av] 319 [lb_av] [place] ([facility]) Body height 66.75 [in_i] 66.75 [in_i] [place] ([facility]) Body temperature 98.5 [degF] 98.5 [degF] [facility] ([facility]) Respiratory rate 20 /min 20 /min [place] ([facility]) Heart rate rhythm 1 1 [place] ([facility]) Heart rate 84 /min 84 /min [place] ([facility]) Diastolic blood pressure 94 mm[Hg] 94 mm[Hg] [place] ([facility]) Systolic blood pressure 120 mm[Hg] 120 mm[Hg] [facility] [place] ([facility]) Patient Treatment Plan of Care Planned Activity Planned Date Details Description Data Source (s) Sertraline 100 MG Oral Tablet 11/10/2019 12:00:00 AM EDT [place] ([facility]) Sertraline 100 MG Oral Tablet 04/18/2019 12:00:00 AM EST [place] ([facility]) Adult Blood Pressure Cuff Lg Kit 12/20/2018 12:00:00 AM EDT [place] ([facility]) Sertraline 100 MG Oral Tablet 10/17/2018 12:00:00 AM [facility] ([facility])
[2020-03-27] MEDS ORDERED: LARI1TAB5 PO (19:16)
[2020-03-27] MEDS ORDERED: NS 1,000 ML IV ONE (20:00)
[2020-03-27 20:11] LABS: BASO # 0.1 10^3/uL (0.0-0.2); BASO % 0.4 % (0.0-1.0); EOS # 0.1 10^3/uL (0.0-0.5); EOS % 0.4 % (0.0-3.0); HEMATOCRIT 43.3 % (36.0-47.0); HEMOGLOBIN 13.8 g/dl (12.0-15.5); LYMPH # 2.9 10^3/uL (1.5-5.0); LYMPH % 19.6 % (24.0-44.0); MEAN CORPUSCULAR HEMOGLOBIN 25.5 pg (27.0-33.0); MEAN CORPUSCULAR HGB CONC 31.9 g/dl (32.0-36.5); MONO # 0.9 10^3/uL (0.0-0.8); MONO % 6.2 % (0.0-5.0); NEUTROPHILS # 10.8 10^3/uL (1.5-8.5); NEUTROPHILS % 73.1 % (36.0-66.0); PLATELET COUNT, AUTOMATED 357 10^3/uL (150-450); RED BLOOD COUNT 5.41 10^6/uL (4.00-5.40); WHITE BLOOD COUNT 14.8 10^3/uL (4.0-10.0)
[2020-03-27 20:30] LABS: ERYTHROCYTE SEDIMENTATION RATE 18 mm/hr (0-20)
[2020-03-27] MEDS ORDERED: fentaNYL 100 MCG/2 ML INJECTION (J3010) IV ONE (20:30)
[2020-03-27 20:46] LABS: RSV AMPLIFICATION NEGATIVE (NEGATIVE)
[2020-03-27 20:57] LABS: ALBUMIN 3.6 GM/DL (3.2-5.2); ALT/SGPT 18 U/L (12-78); BILIRUBIN,TOTAL 0.5 MG/DL (0.2-1.0); BLOOD UREA NITROGEN 11 MG/DL (7-18); C REACTIVE PROTEIN QUANTITATIV 8.13 MG/DL (0.00-0.30); CALCIUM LEVEL 9.4 MG/DL (8.5-10.1); CARBON DIOXIDE LEVEL 27 MEQ/L (21-32); CHLORIDE LEVEL 104 MEQ/L (98-107); CREATININE FOR GFR 0.84 MG/DL (0.55-1.30); GLOMERULAR FILTRATION RATE > 60.0 (>60); GLUCOSE, FASTING 87 MG/DL (70-100); HCG, SERUM QUANTITATIVE < 1.0 MIU/ML; LIPASE 69 U/L (73-393); POTASSIUM SERUM 3.9 MEQ/L (3.5-5.1); SODIUM LEVEL 137 MEQ/L (136-145); TOTAL PROTEIN 7.8 GM/DL (6.4-8.2)
--- OUTSIDE RECORDS SUMMARY | 2020-03-27 21:01 | CCD ---
Author Author [facility] Organization [facility] Address Unknown Phone Unavailable Care Team Providers Care Color Matcher Name Role Phone Shaben, E Almita BOARD SAW RUNNER Unavailable Unavailable Shaben, E Almita BOARD SAW RUNNER Unavailable Unavailable Shaben, E Almita BOARD SAW RUNNER Unavailable Unavailable Shaben, E Almita BOARD SAW RUNNER Unavailable Unavailable Shaben, E Almita BOARD SAW RUNNER Unavailable Unavailable Shaben, E Almita BOARD SAW RUNNER Unavailable Unavailable Shaben, E Almita BOARD SAW RUNNER Unavailable Unavailable Shaben, E Almita BOARD SAW RUNNER Unavailable Unavailable Shaben, E Almita BOARD SAW RUNNER Unavailable Unavailable Shaben, E Almita BOARD SAW RUNNER Unavailable Unavailable Shaben, E Almita BOARD SAW RUNNER Unavailable Unavailable Shaben, E Almita BOARD SAW RUNNER Unavailable Unavailable Shaben, E Almita BOARD SAW RUNNER Unavailable Unavailable Shaben, E Almita BOARD SAW RUNNER Unavailable Unavailable Shaben, E Almita BOARD SAW RUNNER Unavailable Unavailable Shaben, E Almita BOARD SAW RUNNER Unavailable Unavailable Shaben, E Almita BOARD SAW RUNNER Unavailable Unavailable Shaben, E Almita BOARD SAW RUNNER Unavailable Unavailable Shaben, E Almita BOARD SAW RUNNER Unavailable Unavailable Shaben, E Almita BOARD SAW RUNNER Unavailable Unavailable Shaben, E Almita BOARD SAW RUNNER Unavailable Unavailable Shaben, E Almita BOARD SAW RUNNER Unavailable Unavailable Shaben, E Almita BOARD SAW RUNNER Unavailable Unavailable Carguello J Lucas DO Unavailable [...] is protected by Article 27-F of the [facility] Public Health law. If you continue you may have access to information: Regarding HIV / AIDS; Provided by facilities licensed or operated by the [facility] Office of Mental Health; or Provided by the [facility] Office for People With Developmental Disabilities. If such information is present, then the following [facility] mandated warning applies: This information has been [...] law may result in a fine or snf sentence or both. A general authorization for the release of medical or other information is NOT sufficient authorization for further disc losure. 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 -NO packet given Pt Bill of Rights, Priv Prac, Ad Dir completed packet given Pt Bill of Rights, Priv Prac, Ad Dir [facility] ([facility] Note: Pt declined AD packet Allergies and Adverse Reactions Type Description Substance Reaction Status Data Source(s ) Allergy to substance No Known Allergies No known allergies (situation ) [facility] ([facility]) Allergy to substance No Known Allergies No known allergies (situation ) [facility] ([facility]) Allergy to substance No Known Allergies No known allergies (situation ) [facility] ([facility] Family History Family Member Name Family Member Gender Family Member Status Date o f Status Description Data Source(s) Unknown Unknown Problem [facility] ([facility]) Encounters Encounter Providers Location Date Indications Data Source(s ) Outpatient<td ID="encounterTypeDescripti onID0">Primary Care Telehealth FaceTime</td><td>Almita Dixon NP</td><td>[facility]</td><td>12/26/2019</td><td><content ID="encounterDiagnosisID0-0">Anxiety Disorder Nos</content>, <content ID="encounterDiagnosisID0-1">Depression</content></td> [facility] 02[facility]00 PM EDT - 12/26/2019 02:36:30 PM EDT DepressionAnxiety Disorder Nos [facility] ([facility]) Depression Anxiety Disorder Nos Outpatient<td ID="encounterTypeDescripti onID1">Primary Care Telehealth FaceTime</td><td>Almita Dixon NP</td><td>[facility]</td><td>11/10/2019</td><td><content ID="encounterDiagnosisID1-0"> Migraine Headache</content>, <content ID="encounterDiagnosisID1-1">Anxiety Disorder Nos</content>, <content ID="encounterDiagnosisID1-2">Obesity</content>, <content ID="encounterDiagnosisID1-3">Depression</content>, <content ID="encounterDiagnosisID1-4">Hyperlipidemia</content></td> Attender: Almita Dixon [facility] 11/10/2019 03:50:00 PM EDT - 11/10/2019 11:52:23 AM EDT Migraine HeadacheMigraine HeadacheHyperlipidemiaHyperlipidemiaDepressionDepressionAnxiety Disorder NosAnxiety Disorder NosObesityObesity [facility] ([facility]) Migraine Headache Migraine Headache Hyperlipidemia Hyperlipidemia Depression Depression Anxiety Disorder Nos Anxiety Disorder Nos Obesity Obesity Unknown<td ID="encounterTypeDescriptionI D2">[Patient Encounter]</td><td>Almita Dixon NP</td><td></td><td>09/22/2019</td><td></td> Attender: Almita Dixon [facility] 09/22/2019 10:36:00 AM EDT - 09/22/2019 11:59:00 PM EDT [facility] ([facility]) Outpatient<td ID="encounterTypeDescripti onID3">AHR</td><td>Almiat Dixon NP</td><td>[facility]</td><td>04/18/2019</td><td><content ID="encounterDiagnosisID3-0">Routine History and Physical</content>, <content ID="encounterDiagnosisID3-1">Hyperlipidemia</content>, <content ID="encounterDiagnosisID3-2">Anxiety Disorder Nos</content>, <content ID="encounterDiagnosisID3-3">Depression</content></td> Attender: Almita Dixon [facility] 04/18/2019 09:18:00 AM EST - 04/18/2019 10:37:32 AM EST Routine History and PhysicalRoutine History and PhysicalRoutine History and PhysicalHyperlipidemiaHyperlipidemiaHyperlipidemiaDepressionDepressionDepression Anxiety Disorder NosAnxiety Disorder NosAnxiety Disorder Nos [facility] ([facility]) Routine History and Physical Routine History and Physical Routine History and Physical Hyperlipidemia Hyperlipidemia Hyperlipidemia Depression Depression Depression Anxiety Disorder Nos Anxiety Disorder Nos Anxiety Disorder Nos Unknown<td ID="encounterTypeDescriptionI D4">Correspondence</td><td>Lucas Arias DO</td><td></td><td>04/07/2019</td><td></td> Attender: Lucas Arias DO 04/07/2019 09:57:00 AM EST - 04/07/2019 11:59:00 PM EST [facility] ([facility]) Outpatient Attender: Lucas Arias DO 04/06/2019 09:10 :00 AM EST lab [facility] lab Medications Medication Brand Name Start Date [...] active sertraline 100 MG Oral Tablet [facility] Hunter Fe 03/27 1-20 MG-MCG Oral Tablet Hunter Fe 1/ 1-20 MG- MCG Oral Tablet 11/10/2019 12:00:00 AM EDT active {21 (ethinyl estradiol 0.02 MG / norethindrone acetate 1 MG Oral Tablet) / 7 (ferrous fumarate 75 MG Oral Tablet) } Pack [Hunter Fe 03/27] [facility] ([facility]) 1-20 mg-mcg 11/01/2019 12:00:00 AM EDT tablet [...] type / Coverage type Policy ID Covered green party ID Covered green party's relationship to diaz Policy Diaz Plan Information FOR[facility]LY [facility] COMMUNITY PLAN [facility] [id number] [facility] Other [facility] Self 0 UnitedHealthcare Other 0 Self 0 UnitedHealthcare Other 0 Self 0 SELF PAY [facility] COMMUNITY PLAN [id number] SP [id number] UnitedHealthcare Other 0 Self 0 UnitedHealthcare Other 0 Self 0 United [facility] Health Maintenance Organization (HMO) [id number] Self [id number] United[employer] Other 0 Self 0 UN COMMUNITY PLAN [facility] [id number] SP [id number] UnitedHealthcare Other 0 Self 0 UnitedHealthcare Other 0 Self 0 UnitedHealthcare Other 0 Self 0 [facility] COMMUNITY PLAN [id number] SP [id number] UnitedHealthcare Other 0 Self 0 UnitedHealthcare Other 0 Self 0 [facility] Health Maintenance Organization (HMO) [id number] Self [id number] UnitedHealthcare Other 0 Self 0 UnitedHealthcare Other 0 Self 0 UnitedHealthcare Other 0 Self 0 UN COMMUNITY PLAN [facility] [id number] SP [id number] SELF PAY UNAVAILABLE SP UNAVAILA BLE [facility] Health Maintenance Organization (HMO) Self [facility] P [id number] S [id number] MEDICAID S [id number] S [id number] [facility] I [id number] Self [id number] MEDICAID [id number] SP [id number] Surgeries/Procedures Procedure Description Date Indications Data Source(s) [...] 1 11/10/2019 12:00:00 AM EDT G REENWAY ([facility]) History of tonsillectomy History of tonsillectomy 11/10/2019 12:00: 00 AM EDT [facility] ([facility]) Past medical history -Please see Problem List for Act kenneth Chronic Problems Past medical history -Please see Problem List for Active Chronic Problems 04/18/2019 12:00:00 AM EST [facility] ([facility]) Para 1 Para 1 04/18/2019 12:00:00 AM EST [facility] ([facility]) 1 1 04/18/2019 12:00:00 AM EST G [facility] ([facility]) History of tonsillectomy History of tonsillectomy 04/18/2019 12:00: 00 AM EST [facility] ([facility]) Results ID Date Data Source [id number] 04/06/2019 09:20:00 AM EST [facility] ([facility]) Name Value Range Interpretation Code Description Data Suze rce(s) Supporting Document(s) Reported Physicians See Note Reported Physicians [facility] ([facility]) Note: Reported Physicians:Ordering: Lucas Nievesending: Lucas Arias ID Date Data Source [id number] 04/06/2019 09:20:00 AM EST [facility] ([facility]) Name Value Range Interpretation Code Description Data Suze rce(s) Supporting Document(s) Thyrotropin [Units/volume] in Serum or Plasma by Detec tion limit <= 0.05 mIU/L 2.417 uIU/ML Normal TSH [facility] ([facility]) Note: Patients should not be tested for 72 hours post fluorescein dye angiography. A false depression of result may occur.Responsible Observer: TSH TSH 300.5500 (A) ID Date Data Source [id number] 04/06/2019 09:20:00 AM EST [facility] ([facility]) Name Value Range Interpretation Code Description Data Suze rce(s) Supporting Document(s) Cholesterol crystals [Presence] in Stone by Infrared spectroscop y 200 MG/DL Normal CHOLESTEROL [facility] ([facility]) Note: Responsible Observer: CHOL CHOLEST MACRINA 300.4350 (A) Deprecated Cholesterol.in LDL/Cholestero l.in HDL [Mass ratio] in Serum or Plasma 3.6 Normal CHOL/HDL RATIO [facility] ([facility] ) Note: Responsible Observer: CHOL/HDL RAT IO CHOL/HDL RATIO 300.4700 (A) Triglyceride [Mass/volume] in Serum or Plasma 150 MG/DL N ormal TRIGLYCERIDES [facility] ([facility]) Note: Responsible Observer: TRIG TRIGLYC ERIDES 300.4300 (A) Cholesterol in LDL [Mass/volume] in Serum or Plasma by Direct as say 114 MG/DL Normal LDL CHOLESTEROL [facility] ([facility]) Note: Responsible Observer: LDL LDL CHOL ESTEROL 300.4400 (A) Cholesterol in HDL [Mass/volume] in Serum or Plasma ultracen trifugate 56 MG/DL Normal HDL CHOLESTEROL [facility] ([facility]) Note: Responsible Observer: HDL HDL CHOL ESTEROL 300.4600 (A) ID Date Data Source [id number] 04/06/2019 09:20:00 AM EST [facility] ([facility]) Name Value Range Interpretation Code Description Data Suze rce(s) Supporting Document(s) Albumin/Globulin [Mass Ratio] in Amniotic fluid 1.9 G/DL Normal ALB/GLOB RATIO [facility] ([facility]) Note: Responsible Observer: A/G RATIO AL B/GLOB RATIO 300.4100 (A) Albumin [Mass/volume] in Synovial fluid 4.4 G/DL Normal ALBUMIN [facility] ([facility]) Note: Responsible Observer: ALB ALBUMIN 300.3900 (A) Alanine aminotransferase [Enzymatic activity/volume] in Seru m or Plasma 14 U/L Normal ALT [facility] ([facility]) Note: Responsible Observer: ALT/SGPT ALT 300.3100 (A) Alkaline phosphatase isoenzyme [Units/volume] in Serum or Plasma 96 U/L Normal ALKALINE PHOSPHATASE [facility] ([facility]) Note: Responsible Observer: ALK PHOS ALK DUSTIN PHOSPHATASE 300.3110 (A) BLOOD UREA NITRO 13 MG/DL Normal BLOOD UREA NITRO [facility] ([facility]) Note: Responsible Observer: BUN BLOOD UR EA NITROGEN 300.0350 (A) Urea nitrogen/Creatinine [Mass Ratio] in Serum or Plasma 16 Normal BUN/CREAT RATIO [facility] ([facility]) Note: Responsible Observer: BUN/CREAT RA BETTY BUN/CREAT RATIO 300.0450 (A) Aspartate aminotransferase [Enzymatic activity/volume] in Serum or Plasma 12 U/L Normal AST [facility] ([facility]) Note: Responsible Observer: AST/SGOT AST 300.3050 (A) Bilirubin.total [Mass/volume] in Serum or Plasma 0.3 MG/DL Normal BILIRUBIN,TOTAL [facility] ([facility]) Note: Responsible Observer: TOTAL BILI T OTAL BILIRUBIN 300.2700 (A) Chloride [Moles/volume] in Serum, Plasma or Blood 106 MEQ/L Normal CHLORIDE [facility] ([facility]) Note: Responsible Observer: CL CHLORIDE 300.0200 (A) CA 9.4 MG/DL Normal CA [facility] ([facility]) Note: Responsible Observer: CA CALCIUM 300.2200 (A) Carbon dioxide, total [Moles/volume] in Serum or Plasma 25 MEQ/L Normal CARBON DIOXIDE [facility] ([facility]) Note: Responsible Observer: CO2 CARBON D IOXIDE 300.0250 (A) Anion gap in Blood 14 Normal ANION GAP [facility] ([facility]) Note: Responsible Observer: ANION GAP AN ION GAP 300.0300 (A) Globulin [Mass/volume] in Serum by calculation 2.3 G/DL Normal GLOBULIN [facility] ([facility]) Note: Responsible Observer: GLOB GLOBULI N 300.4050 (A) GFR 84.2 ML/MIN GFR [facility] ([facility]) Note: Stage G2 - Mildly decreased [...] Urine 0.8 MG/DL Meghan l CREATININE [facility] ([facility]) Note: Responsible Observer: CREAT CREATI NINE 300.0400 (A) Potassium [Mass/volume] in Blood 4.5 MEQ/L Normal POT ASSIUM [facility] ([facility]) Note: Responsible Observer: K POTASSIUM 300.0150 (A) Glucose [Presence] in Urine 87 MG/DL [facility] Note: Responsible Observer: GLU GLUCOSE 300.0500 (A) Sodium [Moles/volume] in Serum, Plasma or Blood 140 MEQ/L Normal SODIUM [facility] ([facility]) Note: Responsible Observer: NA SODIUM 3 00.0100 (A) Protein [Mass/volume] in Synovial fluid 6.7 G/DL Normal TOTAL PROTEIN [facility] ([facility]) Note: Responsible Observer: TP TOTAL PRO TEIN 300.3750 (A) ID Date Data Source [id number] 04/06/2019 09:20:00 AM EST [facility] ([facility]) Name Value Range Interpretation Code Description Data Suze rce(s) Supporting Document(s) Deprecated Creatinine 156.5 MG/DL CREAT RANDOM URI NE [facility] ([facility]) Note: No Normal Ranges Available for th is Procedure.Responsible Observer: UR CREAT UR CREATININE 200.3655 (A) Microalbumin [Mass/volume] in Urine < 3.0 MG/L MICROALBUMIN,URINE [facility] ([facility]) Note: Responsible Observer: UR MICROALB RND UR MICROALBUMIN RANDOM 200.4000 (A) Microalbumin/Creatinine [Mass Ratio] in Urine 1.9 UG/MG_CR Normal MICROALBUM/CREATININE RATIO,UR [facility] ([facility]) Note: Responsible Observer: UR MICROALB/ CRE UR MICROALBUMIN/CREAT RATIO 200.4100 (A) ID Date Data Source [id number] 04/06/2019 09:20:00 AM EST [facility] ([facility]) Name Value Range Interpretation Code Description Data Suze rce(s) Supporting Document(s) BASO # (AUTO) 0.05 10\\^3/uL Normal BASO # (AUTO) [facility] ([facility]) Note: Responsible Observer: BASO # (AUTO ) BASO # (AUTO) 100.1500 (A) BASO % (AUTO) 0.6 % Normal BASO % (AUTO) [facility] ([facility]) Note: Responsible Observer: BASO % (AUTO ) BASO % (AUTO) 100.1250 (A) EOS % (AUTO) 2.0 % Normal EOS % (AUTO) [facility] ([facility]) Note: Responsible Observer: EOS % (AUTO) EOS % (AUTO) 100.1200 (A) EOS # (AUTO) 0.17 10\\^3/uL Normal EOS # (AUTO) [facility] ( [facility]) Note: Responsible Observer: EOS # (AUTO) EOS # (AUTO) 100.1450 (A) Hematocrit [Volume Fraction] of Blood by Automated count 39.5 % Normal HEMATOCRIT [facility] ([facility]) Note: Responsible Observer: HCT HEMATOCR IT 100.0400 (A) GRAN # (AUTO) 5.10 10\\^3/uL Normal GRAN # (AUTO) [facility] ([facility]) Note: Responsible Observer: GRAN # (AUTO ) GRAN #(AUTO) 100.1325 (A) GRAN % (AUTO) 60.4 % Normal GRAN % (AUTO) [facility] ([facility]) Note: Responsible Observer: GRAN % (AUTO ) GRAN % (AUTO) 100.1000 (A) IG # (AUTO) 0.0 10\\^3/uL IG # (AUTO) [facility] ([facility]) Note: Responsible Observer: IG # (AUTO) IG # (AUTO) 100.1260 (A) Hemoglobin [Mass/volume] in Blood 12.4 G/DL Normal HE MOGLOBIN [facility] ([facility]) Note: Responsible Observer: HGB HEMOGLOB IN 100.0300 (A) IG % (AUTO) 0.2 % IG % (AUTO) [facility] ([facility]) Note: Responsible Observer: IG % (AUTO) IG % (AUTO) 100.1255 (A) LYMPH % (AUTO) 30.5 % Normal LYMPH % (AUTO) [facility] ( [facility]) Note: Responsible Observer: LYMPH % (AUT O) LYMPH % (AUTO) 100.1100 (A) LYMPH # (AUTO) 2.6 k/uL Normal LYMPH # (AUTO) [facility] ( [facility]) Note: Responsible Observer: LYMPH # (AUT O) LYMPH # (AUTO) 100.1350 (A) Erythrocyte mean corpuscular hemoglobin [Entitic mass] by Automated count 23.2 PG Below low normal MCH [facility] Note: Responsible Observer: MCH MCH 100 .0600 (A) Erythrocyte mean corpuscular hemoglobin concentration [Mass/volume] by Automated count 31.4 G/DL Below low normal MCHC [facility] Note: Responsible Observer: MCHC MCHC 1 00.0650 (A) MONO # (AUTO) 0.53 k/uL Normal MONO # (AUTO) [facility] ([facility]) Note: Responsible Observer: MONO # (AUTO ) MONO # (AUTO) 100.1400 (A) MONO % (AUTO) 6.3 % Normal MONO % (AUTO) [facility] ([facility]) Note: Responsible Observer: MONO % (AUTO ) MONO% (AUTO) 100.1150 (A) Erythrocyte mean corpuscular volume [Entitic volume] by Auto mated count 74.0 FL Below low normal MCV [facility] ([facility]) Note: Responsible Observer: MCV MCV 100 .0550 (A) Platelets [#/volume] in Plasma by Automated count 397 10\\^3/uL Normal PLATELET COUNT [facility] ([facility]) Note: Responsible Observer: PLT PLATELET COUNT 100.0850 (A) MPV 9.6 FL Normal MPV [facility] ([facility]) Note: Responsible Observer: MPV MPV 100 .0950 (A) Erythrocytes [#/volume] in Blood by Automated count 5.34 10\\^6/u L Above high normal RED BLOOD COUNT [facility] ([facility]) Note: Responsible Observer: RBC RED BLOO D COUNT 100.0250 (A) Erythrocyte distribution width [Ratio] by Automated count 16.1 % Above high normal RDW [facility] ([facility]) Note: Responsible Observer: RDW RDW 100 .0700 (A) Leukocytes [#/volume] in Blood by Automated count 8.44 10\\^3/uL Normal WHITE BLOOD COUNT [facility] ([facility]) Note: Responsible Observer: WBC WHITE BL OOD COUNT 100.0150 (A) ID Date Data Source [id number] 04/06/2019 01:42:00 PM [facility] Has Patient Fasted For The Past 12 [...] Document(s) WHITE BLOOD COUNT 8.44 10^3/uL 4.00-10.50 [facility] RED BLOOD COUNT 5.34 10^6/uL 3.90-5.20 [facility] HEMOGLOBIN 12.4 G/DL 11.5-15.6 [facility]EM[facility] 39.5 % 35.0-46.0 [facility] MCV 74.0 FL 80.0-100.0 [facility] MCH 23.2 PG 27.0-34.0 [facility] MCHC 31.4 G/DL 32-36 [facility] RDW 16.1 % 11.5-14.5 [facility] PLATELET COUNT 397 10^3/uL 130-400 [facility] MPV 9.6 FL 8.7-13.2 N Mcdermott [employer] GRAN % (AUTO) 60.4 % 42.0-75.0 [facility] LYMPH % (AUTO) 30.5 % 20.0-51.0 N Mcdermott [employer] MONO % (AUTO) 6.3 % 2.0-15.0 N Mcdermott [employer] EOS % (AUTO) 2.0 % 0.0-11.0 N Mcdermott [employer] BASO % (AUTO) 0.6 % 0.0-2.0 [facility] IG % (AUTO) 0.2 % 1.00-5.00 Mcder[facility]ott [employer] IG # (AUTO) 0.0 10^3/uL <0.5 Mcdermott [employer] GRAN # (AUTO) 5.10 10^3/uL 1.50-6.50 [facility] LYMPH # (AUTO) 2.6 k/uL 1.0-5.0 N Mcdermott [employer] MONO # (AUTO) 0.53 k/uL 0.20-1.50 [facility] EOS # (AUTO) 0.17 10^3/uL 0.00-1.10 N Mcdermott [employer] BASO # (AUTO) 0.05 10^3/uL 0.00-0.20 N Mcdermott [employer] ID Date Data Source [id number] 04/06/2019 02:41:00 PM [facility] For The Past 12 [...] Name Value Range Interpretation Code Description Data [place] [facility](s) Supporting Document(s) CREAT RANDOM URINE 156.5 MG/DL [facility] No Normal Ranges Available for this Pro cedure. MICROALBUMIN,URINE < 3.0 MG/L [facility] [address] MICROALBUM/CREATININE RATIO,UR 1.9 UG/MG CR 0.0-30.0 [facility] ID Date Data Source [id number] 04/06/2019 02:41:00 PM [facility] Has Patient Fasted For The Past 12 [...] Name Value Range Interpretation Code Description Data [facility](s) Supporting Document(s) SODIUM 140 MEQ/L 135-145 [facility] POTASSIUM 4.5 MEQ/L 3.5-5.3 [facility] CHLORIDE 106 MEQ/L 94-110 [facility] CARBON DIOXIDE 25 MEQ/L 22-33 [facility] ANION GAP 14 5-16 [facility] BLOOD UREA NITRO 13 MG/DL 7-25 N [facility] CREATININE 0.8 MG/DL 0.6-1.4 [facility] GFR 84.2 ML/MIN [facility] Stage G2 - Mildly decreased kidney func tion The GFR is an estimate of the Glomerular Filtration Rate. It is an aid to assess a patient's renal function. It is not a conclusive diagnosis of kidney disease. GFR normal is >=90 The MDRD GFR calculation is considered valid between the ages of 18 and 75 years only. BUN/CREAT RATIO 16 8-36 N [facility] GLUCOSE 87 MG/DL 70-100 [facility] CA 9.4 MG/DL 8.7-10.5 [facility] BILIRUBIN,TOTAL 0.3 MG/DL 0.1-1.3 [facility] AST 12 U/L 5-40 N [facility] ALT 14 U/L 5-48 N [facility] ALKALINE PHOSPHATASE 96 U/L 40-140 [facility] alth TOTAL PROTEIN 6.7 G/DL 5.9-8.3 N [facility] ALBUMIN 4.4 G/DL 3.0-5.1 N [facility] GLOBULIN 2.3 G/DL 1.5-3.5 [facility] ALB/GLOB RATIO 1.9 G/DL 1.0-2.7 [facility] ID Date Data Source [id number] 04/06/2019 02:41:00 PM [facility] Has Patient Fasted For The Past 12 [...] rce(s) Supporting Document(s) TRIGLYCERIDES 150 MG/DL 45-150 [facility] CHOLESTEROL 200 MG/DL 125-200 [facility] LDL CHOLESTEROL 114 MG/DL 50-130 [facility] HDL CHOLESTEROL 56 MG/DL 32-96 [facility] CHOL/HDL RATIO 3.6 0-4.3 N [facility] ID Date Data Source [id number] 04/06/2019 02:41:00 PM [facility] Has Patient Fasted For The Past 12 [...] Supporting Document(s) TSH 2.417 uIU/ML 0.470-4.200 N [facility] Patients should not be tested for 72 ho urs post fluorescein dye angiography. A false depression of result may occur. Procedure Social History Code Duration Value Status Description Data Source(s ) Smoking 12/26/2019 02:41:51 PM EDT Never smoked tobacco (findi ng) completed Never smoked tobacco (finding) [facility] ([facility]) Smoking 11/10/2019 12:00:00 AM EDT Never smoked tobacco (findi ng) completed Never smoked tobacco (finding) KRYSTA ([facility]) Smoking 04/18/2019 12:00:00 AM EST Never smoked tobacco (findi ng) completed Never smoked tobacco (finding) [facility] ([facility]) Assertion 04/18/2019 12:00:00 AM EST Finding relat ing to drug misuse behavior (finding) completed Finding relating to drug misuse behavior (finding) KRYSTA ([facility]) Assertion 04/18/2019 12:00:00 AM EST Current drinker of al cohol (finding) completed Current drinker of alcohol (finding) DUNLAP ([facility]) Vital Signs ID Date Data Source UNK Name Value Range Interpretation Code Description Data Source(s) PhenX - pain, abdominal - type and intensity protocol 0 0 [facility] ([facility]) PhenX - pain, abdominal - type and intensity protocol 0 0 [facility] ([facility]) pt unable to obtain vitals at home today Inhaled oxygen concentration 21 % 21 % [facility] ([facility]) Inhaled oxygen flow rate 0 L/min 0 L/min [facility] ([facility]) Oxygen saturation in Arterial blood by Pulse oximetry 97 % 97 % [facility] ([facility]) PhenX - pain, abdominal - type and intensity protocol 0 0 [facility] ([facility]) Body surface area Derived from formula 2.46 m2 2.46 m2 [facility] ([facility]) Body mass index (BMI) [Ratio] 50.3 kg/m2 50.3 k g/m2 [facility] ([facility]) Body weight 319 [lb_av] 319 [lb_av] [facility] ([facility]) Body height 66.75 [in_i] 66.75 [in_i] [facility] ([facility]) Body temperature 98.5 [degF] 98.5 [degF] [facility] ([facility]) Respiratory rate 20 /min 20 /min [facility] ([facility]) Heart rate rhythm 1 1 [place] ([facility]) Heart rate 84 /min 84 /min [facility] ([facility]) Diastolic blood pressure 94 mm[Hg] 94 mm[Hg] [facility] ([facility]) Systolic blood pressure 120 mm[Hg] 120 mm[Hg] G ADORE ([facility]) Patient Treatment Plan of Care Planned Activity Planned Date Details Description Data Source (s) Sertraline 100 MG Oral Tablet 11/10/2019 12:00:00 AM EDT [facility] ([facility]) Sertraline 100 MG Oral Tablet 04/18/2019 12:00:00 AM EST [facility] ([facility]) Adult Blood Pressure Cuff Lg Kit 12/20/2018 12:00:00 AM EDT [facility] ([facility]) Sertraline 100 MG Oral Tablet 10/17/2018 12:00:00 AM [facility] ([facility])
[2020-03-27] MEDS ORDERED: PIPERACILLIN/TAZOBACTAM SOD 3.375 GM in D5W MINI-BAG PLUS 50 ML IV ONE (21:15)
--- OUTSIDE RECORDS SUMMARY | 2020-03-27 22:53 | CCD ---
Author Author [facility] Organization [facility] Address Unknown Phone Unavailable Care Team Providers Care [employer] Hand Name Role Phone Shaben, E Almita PASTING MACHINE OFFBEARER Unavailable Unavailable Shaben, E Almita PASTING MACHINE OFFBEARER Unavailable Unavailable Shaben, E Almita PASTING MACHINE OFFBEARER Unavailable Unavailable Shaben, E Almita PASTING MACHINE OFFBEARER Unavailable Unavailable Shaben, E Almita PASTING MACHINE OFFBEARER Unavailable Unavailable Shaben, E Almita PASTING MACHINE OFFBEARER Unavailable Unavailable Shaben, E Almita PASTING MACHINE OFFBEARER Unavailable Unavailable Shaben, E Almita PASTING MACHINE OFFBEARER Unavailable Unavailable Shaben, E Almita PASTING MACHINE OFFBEARER Unavailable Unavailable Shaben, E Almita PASTING MACHINE OFFBEARER Unavailable Unavailable Shaben, E Almita PASTING MACHINE OFFBEARER Unavailable Unavailable Shaben, E Almita PASTING MACHINE OFFBEARER Unavailable Unavailable Shaben, E Almita PASTING MACHINE OFFBEARER Unavailable Unavailable Shaben, E Almita PASTING MACHINE OFFBEARER Unavailable Unavailable Shaben, E Almita PASTING MACHINE OFFBEARER Unavailable Unavailable Shaben, E Almita PASTING MACHINE OFFBEARER Unavailable Unavailable Shaben, E Almita PASTING MACHINE OFFBEARER Unavailable Unavailable Shaben, E Almita PASTING MACHINE OFFBEARER Unavailable Unavailable Shaben, E Almita PASTING MACHINE OFFBEARER Unavailable Unavailable Shaben, E Almita PASTING MACHINE OFFBEARER Unavailable Unavailable Shaben, E Almita PASTING MACHINE OFFBEARER Unavailable Unavailable Shaben, E Almita PASTING MACHINE OFFBEARER Unavailable Unavailable Shaben, E Almita PASTING MACHINE OFFBEARER Unavailable Unavailable Carguello J Lucas DO Unavailable [...] is protected by Article 27-F of the [facility] Public Health law. If you continue you may have access to information: Regarding HIV / AIDS; Provided by facilities licensed or operated by the [facility] Office of Mental Health; or Provided by the [facility] Office for People With Developmental Disabilities. If such information is present, then the following [facility] mandated warning applies: This information has [...] law may result in a fine or custodial sentence or both. A general authorization for the release of medical or other information is NOT sufficient authorization for further disc losure. Advance Directives Directive Description Fuel Technician Area Intelligence Technician Status Observation Descr iption Data Source(s) Ebola Screening Performed completed Ebol a Screening Performed [facility] ([facility]) Note: Within the last month, have you tr aveled outside of the [place]? -NO packet given Pt Bill of Rights, Priv Prac, Ad Dir completed packet given Pt Bill of Rights, Priv Prac, Ad Dir [facility] ([facility]) Note: Pt declined AD packet Allergies and Adverse Reactions Type Description Substance Reaction Status Data Source(s ) Allergy to substance No Known Allergies No known allergies (situation ) [facility] ([facility]) Allergy to substance No Known Allergies No known allergies (situation ) [facility] ([facility]) Allergy to substance No Known Allergies No known allergies (situation ) [facility] ([facility]) Family History Family Member Name Family Member Gender Family Member Status Date o f Status Description Data Source(s) Unknown Unknown Problem [facility] ([facility]) Encounters Encounter Providers Location Date Indications Data Source(s ) Outpatient<td ID="encounterTypeDescripti onID0">Primary Care Telehealth FaceTime</td><td>Almita Dixon NP</td><td>[facility]</td><td>12/26/2019</td><td><content ID="encounterDiagnosisID0-0">Anxiety Disorder Nos</content>, <content ID="encounterDiagnosisID0-1">Depression</content></td> [facility]26[facility] 02:30:00 PM EDT - 12/26/2019 02:36:30 PM EDT DepressionAnxiety Disorder Nos [place] ([facility]) Depression Anxiety Disorder Nos Outpatient<td ID="encounterTypeDescripti onID1">Primary Care Telehealth FaceTime</td><td>Almita Dixon NP</td><td>[facility]</td><td>11/10/2019</td><td><content ID="encounterDiagnosisID1-0"> Migraine Headache</content>, <content ID="encounterDiagnosisID1-1">Anxiety Disorder Nos</content>, <content ID="encounterDiagnosisID1-2">Obesity</content>, <content ID="encounterDiagnosisID1-3">Depression</content>, <content ID="encounterDiagnosisID1-4">Hyperlipidemia</content></td> Attender: Almita Dixon [facility] 11/10/2019 03:50:00 PM EDT - 11/10/2019 11:52:23 AM EDT Migraine HeadacheMigraine HeadacheHyperlipidemiaHyperlipidemiaDepressionDepressionAnxiety Disorder NosAnxiety Disorder NosObesityObesity [place] ([facility]) Migraine Headache Migraine Headache Hyperlipidemia Hyperlipidemia Depression Depression Anxiety Disorder Nos Anxiety Disorder Nos Obesity Obesity Unknown<td ID="encounterTypeDescriptionI D2">[Patient Encounter]</td><td>Almita Dixon NP</td><td></td><td>09/22/2019</td><td></td> Attender: Almita Dixon [facility] 09/22/2019 10:36:00 AM EDT - 09/22/2019 11:59:00 PM EDT [place] ([facility]) Outpatient<td ID="encounterTypeDescripti onID3">AHR</td><td>Almita Dixon NP</td><td>[facility]</td><td>04/18/2019</td><td><content ID="encounterDiagnosisID3-0">Routine History and Physical</content>, <content ID="encounterDiagnosisID3-1">Hyperlipidemia</content>, <content ID="encounterDiagnosisID3-2">Anxiety Disorder Nos</content>, <content ID="encounterDiagnosisID3-3">Depression</content></td> Attender: Almita Dixon [facility] 04/18/2019 09:18:00 AM EST - 04/18/2019 10:37:32 AM EST Routine History and PhysicalRoutine History and PhysicalRoutine History and PhysicalHyperlipidemiaHyperlipidemiaHyperlipidemiaDepressionDepressionDepression Anxiety Disorder NosAnxiety Disorder NosAnxiety Disorder Nos [place] ([facility]) Routine History and Physical Routine History and Physical Routine History and Physical Hyperlipidemia Hyperlipidemia Hyperlipidemia Depression Depression Depression Anxiety Disorder Nos Anxiety Disorder Nos Anxiety Disorder Nos Unknown<td ID="encounterTypeDescriptionI D4">Correspondence</td><td>Lucas Arias DO</td><td></td><td>04/07/2019</td><td></td> Attender: Lucas Arias DO 04/07/2019 09:57:00 AM EST - 04/07/2019 11:59:00 PM EST [facility] ([facility]) Outpatient Attender: Lucas Arias DO 04/06/2019 09:10 :00 AM EST lab [facility] lab Medications Medication Brand Name Start Date [...] active sertraline 100 MG Oral Tablet [facility] Hunter Fe 03/27 1-20 MG-MCG Oral Tablet Hunter Fe 1/ 1-20 MG- MCG Oral Tablet 11/10/2019 12:00:00 AM EDT active {21 (ethinyl estradiol 0.02 MG / norethindrone acetate 1 MG Oral Tablet) / 7 (ferrous fumarate 75 MG Oral Tablet) } Pack [Hutner Fe 03/27] [facility] ([facility] 1-20 mg-mcg 11/01/2019 12:00:00 AM EDT tablet [...] type / Coverage type Policy ID Covered libertarian ID Covered libertarian's relationship to diaz Policy Diaz Plan Information [facility] COMMUNITY [facility] [id number] [facility] Other 0 Self 0 UnitedHealthcare Other 0 Self 0 UnitedHealthcare Other 0 Self 0 SELF PAY [facility] COMMUNITY PLAN [id number] SP [id number] UnitedHealthcare Other 0 Self 0 UnitedHealthcare Other 0 Self 0 United [facility] Health Maintenance Organization (HMO) [id number] Self [id number] UnitedHealthcare Other 0 Self 0 UN COMMUNITY PLAN [facility] [id number] SP [id number] UnitedHealthcare Other 0 Self 0 UnitedHealthcare Other 0 Self 0 UnitedHealthcare Other 0 Self 0 [facility] COMMUNITY PLAN [id number] SP [id number] UnitedHealthcare Other 0 Self 0 UnitedHealthcare Other 0 Self 0 [facility] Health Maintenance Organization (HMO) [id number] Self [id number] UnitedHealthcare Other 0 Self 0 UnitedHealthcare Other 0 Self 0 UnitedHealthcare Other 0 Self 0 UN COMMUNITY PLAN [facility] [id number] SP [id number] SELF PAY UNAVAILABLE SP UNAVAILA BLE [facility] Health Maintenance Organization (HMO) Self [facility] P [id number] S [id number] MEDICAID S [id number] S [id number] [facility] I [id number] Self [id number] MEDICAID [id number] SP [id number] Surgeries/Procedures Procedure Description Date Indications Data Source(s) [...] 1 11/10/2019 12:00:00 AM EDT [place] ([facility]) History of tonsillectomy History of tonsillectomy 11/10/2019 12:00: 00 AM EDT [facility] ([facility]) Past medical history -Please see Problem List for Act kenneth Chronic Problems Past medical history -Please see Problem List for Active Chronic Problems 04/18/2019 12:00:00 AM EST [facility] ([facility]) Para 1 Para 1 04/18/2019 12:00:00 AM EST [place] ([facility]) 1 1 04/18/2019 12:00:00 AM EST [facility] [place] ([facility]) History of tonsillectomy History of tonsillectomy 04/18/2019 12:00: 00 AM EST [facility] ([facility]) Results ID Date Data Source [id number] 04/06/2019 09:20:00 AM EST [facility] ([facility]) Name Value Range Interpretation Code Description Data Suze rce(s) Supporting Document(s) Reported Physicians See Note Reported Physicians [place] ([facility]) Note: Reported Physicians:Ordering: Lucas Nievesending: Lucas Arias ID Date Data Source [id number] 04/06/2019 09:20:00 AM EST [facility] ([facility]) Name Value Range Interpretation Code Description Data Suze rce(s) Supporting Document(s) Thyrotropin [Units/volume] in Serum or Plasma by Detec tion limit <= 0.05 mIU/L 2.417 uIU/ML Normal TSH [place] ([facility]) Note: Patients should not be tested for 72 hours post fluorescein dye angiography. A false depression of result may occur.Responsible Observer: TSH TSH 300.5500 (A) ID Date Data Source [id number] 04/06/2019 09:20:00 AM EST [facility] ([facility]) Name Value Range Interpretation Code Description Data Suze rce(s) Supporting Document(s) Cholesterol crystals [Presence] in Stone by Infrared spectroscop y 200 MG/DL Normal CHOLESTEROL [place] ([facility]) Note: Responsible Observer: CHOL CHOLEST MACRINA 300.4350 (A) Deprecated Cholesterol.in LDL/Cholestero l.in HDL [Mass ratio] in Serum or Plasma 3.6 Normal CHOL/HDL RATIO [place] ([facility] ) Note: Responsible Observer: CHOL/HDL RAT IO CHOL/HDL RATIO 300.4700 (A) Triglyceride [Mass/volume] in Serum or Plasma 150 MG/DL N ormal TRIGLYCERIDES [place] ([facility]) Note: Responsible Observer: TRIG TRIGLYC ERIDES 300.4300 (A) Cholesterol in LDL [Mass/volume] in Serum or Plasma by Direct as say 114 MG/DL Normal LDL CHOLESTEROL [place] ([facility]) Note: Responsible Observer: LDL LDL CHOL ESTEROL 300.4400 (A) Cholesterol in HDL [Mass/volume] in Serum or Plasma ultracen trifugate 56 MG/DL Normal HDL CHOLESTEROL [place] ([facility]) Note: Responsible Observer: HDL HDL CHOL ESTEROL 300.4600 (A) ID Date Data Source [id number] 04/06/2019 09:20:00 AM EST [place] ([employer]) Name Value Range Interpretation Code Description Data Suez rce(s) Supporting Document(s) Albumin/Globulin [Mass Ratio] in Amniotic fluid 1.9 G/DL Normal ALB/GLOB RATIO [place] ([facility]) Note: Responsible Observer: A/G RATIO AL B/GLOB RATIO 300.4100 (A) Albumin [Mass/volume] in Synovial fluid 4.4 G/DL Normal ALBUMIN [place] ([facility]) Note: Responsible Observer: ALB ALBUMIN 300.3900 (A) Alanine aminotransferase [Enzymatic activity/volume] in Seru m or Plasma 14 U/L Normal ALT [place] ([facility]) Note: Responsible Observer: ALT/SGPT ALT 300.3100 (A) Alkaline phosphatase isoenzyme [Units/volume] in Serum or Plasma 96 U/L Normal ALKALINE PHOSPHATASE [place] ([facility]) Note: Responsible Observer: ALK PHOS ALK DUSTIN PHOSPHATASE 300.3110 (A) BLOOD UREA NITRO 13 MG/DL Normal BLOOD UREA NITRO [facility] ([facility]) Note: Responsible Observer: BUN BLOOD UR EA NITROGEN 300.0350 (A) Urea nitrogen/Creatinine [Mass Ratio] in Serum or Plasma 16 Normal BUN/CREAT RATIO [place] ([facility]) Note: Responsible Observer: BUN/CREAT RA BETTY BUN/CREAT RATIO 300.0450 (A) Aspartate aminotransferase [Enzymatic activity/volume] in Serum or Plasma 12 U/L Normal AST [place] ([facility]) Note: Responsible Observer: AST/SGOT AST 300.3050 (A) Bilirubin.total [Mass/volume] in Serum or Plasma 0.3 MG/DL Normal BILIRUBIN,TOTAL [place] ([facility]) Note: Responsible Observer: TOTAL BILI T OTAL BILIRUBIN 300.2700 (A) Chloride [Moles/volume] in Serum, Plasma or Blood 106 MEQ/L Normal CHLORIDE [place] ([facility]) Note: Responsible Observer: CL CHLORIDE 300.0200 (A) CA 9.4 MG/DL Normal CA [facility] ([facility]) Note: Responsible Observer: CA CALCIUM 300.2200 (A) Carbon dioxide, total [Moles/volume] in Serum or Plasma 25 MEQ/L Normal CARBON DIOXIDE [facility] ([facility]) Note: Responsible Observer: CO2 CARBON D IOXIDE 300.0250 (A) Anion gap in Blood 14 Normal ANION GAP [facility] ([facility]) Note: Responsible Observer: ANION GAP AN ION GAP 300.0300 (A) Globulin [Mass/volume] in Serum by calculation 2.3 G/DL Normal GLOBULIN [place] ([facility]) Note: Responsible Observer: GLOB GLOBULI N 300.4050 (A) GFR 84.2 ML/MIN GFR [place] ([facility]) Note: Stage G2 - Mildly decreased kidne [...] Urine 0.8 MG/DL Meghan l CREATININE [place] ([facility]) Note: Responsible Observer: CREAT CREATI NINE 300.0400 (A) Potassium [Mass/volume] in Blood 4.5 MEQ/L Normal POT ASSIUM [facility] ([facility]) Note: Responsible Observer: K POTASSIUM 300.0150 (A) Glucose [Presence] in Urine 87 MG/DL [facility] Note: Responsible Observer: GLU GLUCOSE 300.0500 (A) Sodium [Moles/volume] in Serum, Plasma or Blood 140 MEQ/L Normal SODIUM [place] ([facility]) Note: Responsible Observer: NA SODIUM 3 00.0100 (A) Protein [Mass/volume] in Synovial fluid 6.7 G/DL Normal TOTAL PROTEIN [facility] ([facility]) Note: Responsible Observer: TP TOTAL PRO TEIN 300.3750 (A) ID Date Data Source [id number] 04/06/2019 09:20:00 AM EST [facility] ([facility]) Name Value Range Interpretation Code Description Data Suze rce(s) Supporting Document(s) Deprecated Creatinine 156.5 MG/DL CREAT RANDOM URI NE [facility] ([facility]) Note: No Normal Ranges Available for th is Procedure.Responsible Observer: UR CREAT UR CREATININE 200.3655 (A) Microalbumin [Mass/volume] in Urine < 3.0 MG/L MICROALBUMIN,URINE [facility] ([facility]) Note: Responsible Observer: UR MICROALB RND UR MICROALBUMIN RANDOM 200.4000 (A) Microalbumin/Creatinine [Mass Ratio] in Urine 1.9 UG/MG_CR Normal MICROALBUM/CREATININE RATIO,UR [place] ([facility]) Note: Responsible Observer: UR MICROALB/ CRE UR MICROALBUMIN/CREAT RATIO 200.4100 (A) ID Date Data Source [id number] 04/06/2019 09:20:00 AM EST [place] ([facility]) Name Value Range Interpretation Code Description Data Suze rce(s) Supporting Document(s) BASO # (AUTO) 0.05 10\\^3/uL Normal BASO # (AUTO) [facility] ([facility]) Note: Responsible Observer: BASO # (AUTO ) BASO # (AUTO) 100.1500 (A) BASO % (AUTO) 0.6 % Normal BASO % (AUTO) [facility] ([facility]) Note: Responsible Observer: BASO % (AUTO ) BASO % (AUTO) 100.1250 (A) EOS % (AUTO) 2.0 % Normal EOS % (AUTO) [facility] ([facility]) Note: Responsible Observer: EOS % (AUTO) EOS % (AUTO) 100.1200 (A) EOS # (AUTO) 0.17 10\\^3/uL Normal EOS # (AUTO) [place] ( [facility]) Note: Responsible Observer: EOS # (AUTO) EOS # (AUTO) 100.1450 (A) Hematocrit [Volume Fraction] of Blood by Automated count 39.5 % Normal HEMATOCRIT [facility] ([facility]) Note: Responsible Observer: HCT HEMATOCR IT 100.0400 (A) GRAN # (AUTO) 5.10 10\\^3/uL Normal GRAN # (AUTO) [place] ([facility]) Note: Responsible Observer: GRAN # (AUTO ) GRAN #(AUTO) 100.1325 (A) GRAN % (AUTO) 60.4 % Normal GRAN % (AUTO) [facility] ([facility]) Note: Responsible Observer: GRAN % (AUTO ) GRAN % (AUTO) 100.1000 (A) IG # (AUTO) 0.0 10\\^3/uL IG # (AUTO) [place] ([facility]) Note: Responsible Observer: IG # (AUTO) IG # (AUTO) 100.1260 (A) Hemoglobin [Mass/volume] in Blood 12.4 G/DL Normal HE MOGLOBIN [place] ([facility]) Note: Responsible Observer: HGB HEMOGLOB IN 100.0300 (A) IG % (AUTO) 0.2 % IG % (AUTO) [facility] ([facility]) Note: Responsible Observer: IG % (AUTO) IG % (AUTO) 100.1255 (A) LYMPH % (AUTO) 30.5 % Normal LYMPH % (AUTO) [place] ( [facility]) Note: Responsible Observer: LYMPH % (AUT O) LYMPH % (AUTO) 100.1100 (A) LYMPH # (AUTO) 2.6 k/uL Normal LYMPH # (AUTO) [place] ( [facility]) Note: Responsible Observer: LYMPH # (AUT O) LYMPH # (AUTO) 100.1350 (A) Erythrocyte mean corpuscular hemoglobin [Entitic mass] by Automated count 23.2 PG Below low normal MCH [facility] Note: Responsible Observer: MCH MCH 100 .0600 (A) Erythrocyte mean corpuscular hemoglobin concentration [Mass/volume] by Automated count 31.4 G/DL Below low normal MCHC [facility] Note: Responsible Observer: MCHC MCHC 1 00.0650 (A) MONO # (AUTO) 0.53 k/uL Normal MONO # (AUTO) [facility] ([facility]) Note: Responsible Observer: MONO # (AUTO ) MONO # (AUTO) 100.1400 (A) MONO % (AUTO) 6.3 % Normal MONO % (AUTO) [place] ([facility]) Note: Responsible Observer: MONO % (AUTO ) MONO% (AUTO) 100.1150 (A) Erythrocyte mean corpuscular volume [Entitic volume] by Auto mated count 74.0 FL Below low normal MCV [place] ([facility]) Note: Responsible Observer: MCV MCV 100 .0550 (A) Platelets [#/volume] in Plasma by Automated count 397 10\\^3/uL Normal PLATELET COUNT [place] ([facility]) Note: Responsible Observer: PLT PLATELET COUNT 100.0850 (A) MPV 9.6 FL Normal MPV [place] ([facility]) Note: Responsible Observer: MPV MPV 100 .0950 (A) Erythrocytes [#/volume] in Blood by Automated count 5.34 10\\^6/u L Above high normal RED BLOOD COUNT [place] ([facility]) Note: Responsible Observer: RBC RED BLOO D COUNT 100.0250 (A) Erythrocyte distribution width [Ratio] by Automated count 16.1 % Above high normal RDW [place] ([facility]) Note: Responsible Observer: RDW RDW 100 .0700 (A) Leukocytes [#/volume] in Blood by Automated count 8.44 10\\^3/uL Normal WHITE BLOOD COUNT [place] ([facility]) Note: Responsible Observer: WBC WHITE BL OOD COUNT 100.0150 (A) ID Date Data Source [id number] 04/06/2019 01:42:00 PM [facility] Has Patient Fasted For The Past 12 [...] Document(s) WHITE BLOOD COUNT 8.44 10^3/uL 4.00-10.50 [facility] RED BLOOD COUNT 5.34 10^6/uL 3.90-5.20 [facility] HEMOGLOBIN 12.4 G/DL 11.5-15.6 [facility] HEMAT[facility]IT 39.5 % 35.0-46.0 N [facility] MCV 74.0 FL 80.0-100.0 L [facility] MCH 23.2 PG 27.0-34.0 L [facility] MCHC 31.4 G/DL 32-36 [facility] RDW 16.1 % 11.5-14.5 [facility] PLATELET COUNT 397 10^3/uL 130-400 [facility] MPV 9.6 FL 8.7-13.2 N [place] [employer] GRAN % (AUTO) 60.4 % 42.0-75.0 [facility] LYMPH % (AUTO) 30.5 % 20.0-51.0 N [place] [employer] MONO % (AUTO) 6.3 % 2.0-15.0 N [place] [employer] EOS % (AUTO) 2.0 % 0.0-11.0 N [place] [employer] BASO % (AUTO) 0.6 % 0.0-2.0 [facility] IG % (AUTO) 0.2 % 1.00-5.00 [place] [employer] IG # (AUTO) 0.0 10^3/uL <0.5 [place] [employer] GRAN # (AUTO) 5.10 10^3/uL 1.50-6.50 [facility] LYMPH # (AUTO) 2.6 k/uL 1.0-5.0 [place] [employer] MONO # (AUTO) 0.53 k/uL 0.20-1.50 [facility] EOS # (AUTO) 0.17 10^3/uL 0.00-1.10 [facility] [place] [employer] BASO # (AUTO) 0.05 10^3/uL 0.00-0.20 N [place] [employer] ID Date Data Source [id number] 04/06/2019 02:41:00 PM EST [facility] For The [...] Name Value Range Interpretation Code Description Data [facility](s) Supporting Document(s) CREAT RANDOM URINE 156.5 MG/DL [facility] No Normal Ranges Available for this Pro cedure. MICROALBUMIN,URINE < 3.0 MG/L [facility] MICROALBUM/CREATININE RATIO,UR 1.9 UG/MG CR 0.0-30.0 [facility] ID Date Data Source [id number] 04/06/2019 02:41:00 PM [facility] Has Patient Fasted For The Past 12 [...] Name Value Range Interpretation Code Description Data [facility](s) Supporting Document(s) SODIUM 140 MEQ/L 135-145 [facility] POTASSIUM 4.5 MEQ/L 3.5-5.3 [facility] CHLORIDE 106 MEQ/L 94-110 [facility] CARBON DIOXIDE 25 MEQ/L 22-33 [facility] ANION GAP 14 5-16 [facility] BLOOD UREA NITRO 13 MG/DL 7-25 N [facility] CREATININE 0.8 MG/DL 0.6-1.4 [facility] GFR 84.2 ML/MIN [facility] Stage G2 - Mildly decreased kidney func tion The GFR is an estimate of the Glomerular Filtration Rate. It is an aid to assess a patient's renal function. It is not a conclusive diagnosis of kidney disease. GFR normal is >=90 The MDRD GFR calculation is considered valid between the ages of 18 and 75 years only. BUN/CREAT RATIO 16 8-36 N [facility] GLUCOSE 87 MG/DL 70-100 [facility] CA 9.4 MG/DL 8.7-10.5 [facility] BILIRUBIN,TOTAL 0.3 MG/DL 0.1-1.3 [facility] AST 12 U/L 5-40 N [facility] ALT 14 U/L 5-48 N [facility] ALKALINE PHOSPHATASE 96 U/L 40-140 [facility] alth TOTAL PROTEIN 6.7 G/DL 5.9-8.3 N [facility] ALBUMIN 4.4 G/DL 3.0-5.1 N [facility] GLOBULIN 2.3 G/DL 1.5-3.5 [facility] ALB/GLOB RATIO 1.9 G/DL 1.0-2.7 [facility] ID Date Data Source [id number] 04/06/2019 02:41:00 PM [facility] Has Patient Fasted For The Past 12 [...] rce(s) Supporting Document(s) TRIGLYCERIDES 150 MG/DL 45-150 [facility] CHOLESTEROL 200 MG/DL 125-200 [facility] LDL CHOLESTEROL 114 MG/DL 50-130 [facility] HDL CHOLESTEROL 56 MG/DL 32-96 [facility] CHOL/HDL RATIO 3.6 0-4.3 N [facility] ID Date Data Source [id number] 04/06/2019 02:41:00 PM [facility] Has Patient Fasted For The Past 12 [...] Supporting Document(s) TSH 2.417 uIU/ML 0.470-4.200 N [facility] Patients should not be tested for 70 ho urs post fluorescein dye angiography. A false depression of result may occur. Procedure Social History Code Duration Value Status Description Data Source(s ) Smoking 12/26/2019 02:41:51 PM EDT Never smoked tobacco (findi ng) completed Never smoked tobacco (finding) [facility] ([facility]) Smoking 11/10/2019 12:00:00 AM EDT Never smoked tobacco (findi ng) completed Never smoked tobacco (finding) [facility] ([facility]) Smoking 04/18/2019 12:00:00 AM EST Never smoked tobacco (findi ng) completed Never smoked tobacco (finding) [place] ([facility]) Assertion 04/18/2019 12:00:00 AM EST Finding relat ing to drug misuse behavior (finding) completed Finding relating to drug misuse behavior (finding) [place] ([facility]) Assertion 04/18/2019 12:00:00 AM EST Current drinker of al cohol (finding) completed Current drinker of alcohol (finding) [place] ([facility]) Vital Signs ID Date Data Source UNK Name Value Range Interpretation Code Description Data Source(s) PhenX - pain, abdominal - type and intensity protocol 0 0 [place] ([facility]) PhenX - pain, abdominal - type and intensity protocol 0 0 [place] ([facility]) pt unable to obtain vitals at home today Inhaled oxygen concentration 21 % 21 % [place] ([facility]) Inhaled oxygen flow rate 0 L/min 0 L/min [place] ([facility]) Oxygen saturation in Arterial blood by Pulse oximetry 97 % 97 % [place] ([facility]) PhenX - pain, abdominal - type and intensity protocol 0 0 [place] ([facility]) Body surface area Derived from formula 2.46 m2 2.46 m2 [place] ([facility]) Body mass index (BMI) [Ratio] 50.3 kg/m2 50.3 k g/m2 [place] ([facility]) Body weight 319 [lb_av] 319 [lb_av] [place] ([facility]) Body height 66.75 [in_i] 66.75 [in_i] [place] ([facility]) Body temperature 98.5 [degF] 98.5 [degF] [facility] ([facility]) Respiratory rate 20 /min 20 /min [place] ([facility]) Heart rate rhythm 1 1 [place] ([facility]) Heart rate 84 /min 84 /min [place] ([facility]) Diastolic blood pressure 94 mm[Hg] 94 mm[Hg] [place] ([facility]) Systolic blood pressure 120 mm[Hg] 120 mm[Hg] [place] ([facility]) Patient Treatment Plan of Care Planned Activity Planned Date Details Description Data Source (s) Sertraline 100 MG Oral Tablet 11/10/2019 12:00:00 AM EDT [place] ([facility]) Sertraline 100 MG Oral Tablet 04/18/2019 12:00:00 AM EST [place] ([facility]) Adult Blood Pressure Cuff Lg Kit 12/20/2018 12:00:00 AM EDT [place] ([facility]) Sertraline 100 MG Oral Tablet 10/17/2018 12:00:00 AM [facility] ([facility])
[2020-03-27] MEDS ORDERED: fentaNYL 100 MCG/2 ML INJECTION (J3010) As Ordered ONE (22:58)
[2020-03-27] MEDS ORDERED: MIDAZOLAM INJ 2MG/2ML VIAL (J2250 PER 1MG) As Ordered ONE (22:58)
[2020-03-27] MEDS ORDERED: propofoL 200 MG/20 ML VIAL As Ordered ONE (22:59)
[2020-03-27] MEDS ORDERED: dexameTHASONE 4 MG/ML 1ML VIAL (J1100 PER 1MG) As Ordered ONE (22:59)
[2020-03-27] MEDS ORDERED: ACETAMINOPHEN 1000MG 100ML IV BTL (OFIRMEV) (J0131 PER 10MG) As Ordered ONE (22:59)
[2020-03-27] MEDS ORDERED: SUGAMMADEX SODIUM 500 MG/5 ML VIAL (BRIDION) As Ordered ONE (22:59)
[2020-03-27] MEDS ORDERED: ePHEDrine SULFATE 25 MG/5 ML(5MG/ML) SYRINGE As Ordered ONE (22:59)
[2020-03-27] MEDS ORDERED: PHENYLephrine 500MCG 5ML (100MCG/ML) SYRINGE As Ordered ONE (22:59)
[2020-03-27] MEDS ORDERED: ONDANSETRON 4MG/2ML VIAL As Ordered ONE (22:59)
[2020-03-27] MEDS ORDERED: ROCURONIUM BROMIDE 50 MG/5 ML VIAL As Ordered ONE (22:59)
[2020-03-27] MEDS ORDERED: BUPIVACAINE/EPIN 0.25% 30 ML VIAL As Ordered ONE (23:00)
[2020-03-27] MEDS ORDERED: LIDOCAINE 2% 100MG/5ML SDV (FOR ANES.) As Ordered ONE (23:08)
[2020-03-28] VITALS (7 sets, daily range): BP systolic 101–138; BP diastolic 59–92
[2020-03-28] MEDS ORDERED: LR 1,000 ML IV SCH ×2 (00:18→00:30)
[2020-03-28] MEDS ORDERED: fentaNYL 100 MCG/2 ML INJECTION (J3010) As Ordered ONE (00:22)
[2020-03-28] MEDS ORDERED: MORPHINE 2 MG/ML 1ML VIAL (J2270) IV PRN ×2 (00:30)
[2020-03-28] MEDS ORDERED: HYDROMORPHONE HCL 0.5 MG/ 0.5 ML SYRINGE (J1170 PER 1) IV PRN (00:30)
[2020-03-28] MEDS ORDERED: METOCLOPRAMIDE INJ 10MG/2ML VIAL (J2765 PER 1) IV PRN (00:30)
[2020-03-28] MEDS ORDERED: fentaNYL 100 MCG/2 ML INJECTION (J3010) IV PRN (00:30)
[2020-03-28] MEDS ORDERED: ONDANSETRON 4MG/2ML VIAL IV PRN ×2 (00:30)
[2020-03-28] MEDS ORDERED: oxyCODONE 5MG TAB PO PRN (00:30)
[2020-03-28] MEDS ORDERED: NORCO, ANEXSIA 5/325MG TABLET (HYDROcodone/ACETAMINOPHEN) PO PRN ×2 (00:30)
[2020-03-28] MEDS ORDERED: ACETAMINOPHEN TAB 650MG DOSE (2X325MG) PO PRN (00:30)
[2020-03-28] MEDS ORDERED: oxyCODONE 5MG TAB As Ordered ONE (00:37)
[2020-03-28] MEDS ORDERED: KETOROLAC 30 MG/ML 1ML VIAL As Ordered ONE (00:54)
[2020-03-28] MEDS: KETOROLAC 30 MG/ML 1ML VIAL IV SCH ×2 (01:00→06:31)
[2020-03-28] MEDS: PIPERACILLIN/TAZOBACTAM SOD 3.375 GM in D5W MINI-BAG PLUS 50 ML IV SCH ×2 (02:55→09:11)
--- NOTE | 2020-04-15 08:06 | RO ---
OPERATIVE NOTE DATE OF OPERATION: 03/28/2020 PREOPERATIVE DIAGNOSIS: Acute appendicitis. POSTOPERATIVE DIAGNOSIS: Acute appendicitis. PROCEDURE: Laparoscopic appendectomy. SURGEON: Edison Scott MD MEDICAL CODING AUDITOR: ANESTHESIA: General endotracheal anesthesia. EBL: Minimal. FLUIDS: Crystalloid. DESCRIPTION OF PROCEDURE: The patient was brought to the operating room, was given general anesthesia. After adequate anesthesia and preoperative antibiotics were given the patient was prepped and draped in the usual sterile fashion. A supraumbilical incision was made with skin knife; blunt dissection was carried down to fascia. Fascia was entered with Veress needle and insufflated to 15 mm of pressure and then dilating 12 mm trocar was placed. Under direct visualization suprapubic and left lower quadrant 5 mm trocars were placed and then the appendix was found. It was dissected off surrounding tissue and mesentery of the appendix was taken with Harmonic scalpel as well as mobilizing the appendix off the sidewall and the base of the cecum using Harmonic scalpel. Once the dissection continued all the way to the base of the appendix/cecal wall the cecal wall was transected using SHIVANI 45 stapler, placed in Endo Catch bag, brought out through the umbilicus. Right lower quadrant was copiously irrigated until clear and all trocars were removed under direct visualization. #0 Vicryl was used to close the fascia at the umbilicus and all incisions were closed with 4-0 Vicryl, Steri-Strips and dry, sterile dressing was applied. The patient was awakened, extubated and brought to the recovery room awake, alert and hemodynamically stable. Sponge and needle counts correct x2.
== END 2020-03-28 16:05 | disposition home or self-care (01) ==
LOC: M ED 19:06 → M SDC 22:48 → M PED 03-28 01:45 → M SDC 03-28 16:05
PROVIDERS: ATTEND Surgery
DX: K35.80 Unspecified acute appendicitis (principal); E66.9 Obesity, unspecified; F32.9 Major depressive disorder, single episode, unspecified; F41.9 Anxiety disorder, unspecified; Z68.43 Body mass index [BMI] 50.0-59.9, adult
CPT/HCPCS: 44970; 80053; 83605; 83690; 84702; 85025; 85652; 86140; 87631; 88304; 96360; 96361; 96365; 96366; 96375; 99284; J0131; J1100; J1170; J1885; J2250; J2370; J2405; J2543; J3010

== ENCOUNTER → 2020-03-27 | Outpatient (CLI) | payer OTHER ==
[~2020-03-27] MED LIST changes: +DEBL1TAB PO; +GASTROGRAFIN SOLUTION 30ML (Q9963) As Ordered ONE; +ISOVUE-370 76% 100ML VIAL As Ordered ONE; +LARI1TAB5 PO; +NAPR-837 PO
[2020-03-27 13:05] LABS: BASO % 0.2 % (0.0-1.0); HEMATOCRIT 41.3 % (36.0-47.0); HEMOGLOBIN 13.3 g/dl (12.0-15.5); LYMPH # 1.4 10^3/uL (1.5-5.0); LYMPH % 8.7 % (24.0-44.0); MEAN CORPUSCULAR HEMOGLOBIN 25.9 pg (27.0-33.0); MEAN CORPUSCULAR HGB CONC 32.2 g/dl (32.0-36.5); MEAN CORPUSCULAR VOLUME 80.4 fl (80.0-96.0); MONO # 0.7 10^3/uL (0.0-0.8); MONO % 4.4 % (0.0-5.0); NEUTROPHILS # 14.1 10^3/uL (1.5-8.5); NEUTROPHILS % 86.2 % (36.0-66.0); PLATELET COUNT, AUTOMATED 339 10^3/uL (150-450); RED BLOOD COUNT 5.14 10^6/uL (4.00-5.40); WHITE BLOOD COUNT 16.4 10^3/uL (4.0-10.0)
[2020-03-27 13:32] LABS: ALBUMIN 3.5 GM/DL (3.2-5.2); ALT/SGPT 17 U/L (12-78); AMYLASE 37 U/L (25-115); BILIRUBIN,TOTAL 0.4 MG/DL (0.2-1.0); BLOOD UREA NITROGEN 14 MG/DL (7-18); CALCIUM LEVEL 9.2 MG/DL (8.5-10.1); CARBON DIOXIDE LEVEL 28 MEQ/L (21-32); CHLORIDE LEVEL 104 MEQ/L (98-107); CREATININE FOR GFR 0.83 MG/DL (0.55-1.30); GLOMERULAR FILTRATION RATE > 60.0 (>60); GLUCOSE, FASTING 99 MG/DL (70-100); LIPASE 80 U/L (73-393); POTASSIUM SERUM 4.3 MEQ/L (3.5-5.1); SODIUM LEVEL 137 MEQ/L (136-145); TOTAL PROTEIN 7.6 GM/DL (6.4-8.2)
--- NOTE | 2020-03-27 14:45 | REP ---
INDICATION: ABD PAIN APPENDICITIS, LAB 1ST THEN CT COMPARISON: None. TECHNIQUE: CT Scan of the abdomen and pelvis was performed with intravenous administration of 100 cc of Isovue 370, and oral contrast. FINDINGS: Lung bases: Unremarkable. Liver: Normal Gallbladder: Unremarkable. Spleen: Normal. Adrenals: Normal. Pancreas: Normal. Kidneys: Normal. Small and large bowel: Unremarkable. Free fluid: None. Abdominal aorta: No aneurysm or dissection. Adenopathy: None. Appendix: The appendix is dilated and thickened, maximum diameter is 12 mm. There is mild streaky inflammatory change in the periappendiceal fat. The findings are consistent with appendicitis. Osseous structures: Unremarkable. Pelvis: No mass. IMPRESSION: Findings compatible with appendicitis, with no evidence of free air, free fluid or abscess. <Electronically signed by Krishna Cerna > 03/27/20 [id number]
== END ==
LOC: M RAD 12:20
PROVIDERS: ATTEND Nurse Practitioner Family
DX: R10.9 Unspecified abdominal pain (principal); R11.2 Nausea with vomiting, unspecified
CPT/HCPCS: 36415; 74177; 80053; 82150; 83690; 85025; Q9963; Q9967

== ENCOUNTER → 2020-07-11 | Outpatient (REF) | payer OTHER ==
[~2020-07-11] MED LIST changes: +LARI1TAB5 PO
[2020-07-11 13:25] LABS: HEMATOCRIT 39.6 % (36.0-47.0); HEMOGLOBIN 12.8 g/dl (12.0-15.5); MEAN CORPUSCULAR HEMOGLOBIN 26.4 pg (27.0-33.0); MEAN CORPUSCULAR HGB CONC 32.3 g/dl (32.0-36.5); MEAN CORPUSCULAR VOLUME 81.6 fl (80.0-96.0); PLATELET COUNT, AUTOMATED 308 10^3/uL (150-450); RED BLOOD COUNT 4.85 10^6/uL (4.00-5.40); WHITE BLOOD COUNT 8.6 10^3/uL (4.0-10.0)
[2020-07-11 14:00] LABS: HCG, SERUM QUANTITATIVE 256 MIU/ML
[2020-07-11 14:15] LABS: HEPATITIS B SURFACE ANTIGEN NEGATIVE (NEGATIVE)
[2020-07-11 14:39] LABS: HEMOGLOBIN A1c 5.1 %
[2020-07-11 14:43] LABS: HIV 1&2 SCREEN CENTAUR NEGATIVE (NEGATIVE)
== END ==
LOC: M LAB REF 12:46
PROVIDERS: ATTEND Obstetrics & Gynecology
DX: Z32.01 Encounter for pregnancy test, result positive (principal)

== ENCOUNTER 2023-11-18 09:01 | Emergency (ER) | payer OTHER ==
[~2023-11-18] VITALS: Ht 170.2 cm; Wt 146.1 kg
[2023-11-18] MEDS ORDERED: FERR325T19 (09:12)
[2023-11-18] MEDS ORDERED: BUPR-597 (09:12)
[2023-11-18] MEDS ORDERED: ESCITALOPRAM (09:12)
[2023-11-18 10:59] VITALS: BP 133/71; TEMP 97.9; O2SAT 96
[2023-11-18] MEDS: IBUPROFEN 600MG TAB PO ONE (11:52)
[2023-11-18] MEDS: ACETAMINOPHEN 325 MG TAB PO ONE (11:53)
== END 2023-11-18 11:59 | disposition home or self-care (01) ==
LOC: M ED 09:01
DX: S96.911A Strain of unspecified muscle and tendon at ankle and foot level, right foot, initial encounter (principal); X50.0XXA Overexertion from strenuous movement or load, initial encounter; F41.9 Anxiety disorder, unspecified; F32.A Depression, unspecified; Z90.89 Acquired absence of other organs; Y92.9 Unspecified place or not applicable; Y93.9 Activity, unspecified; Y99.9 Unspecified external cause status; Z79.899 Other long term (current) drug therapy